=== PATIENT | female | born 1970 | race Caucasian/White ===

== ENCOUNTER 2016-10-01 22:43 | Emergency (ER) | payer OTHER ==
[~2016-10-01] VITALS: Ht 147.3 cm; Wt 96.8 kg
[~2016-10-01 22:43] MED LIST: ASPI81TA28 PO; BUPR-102 PO; GABA-1218 PO; HMLI7525 SC; PXL20 PO; TRAZ100T29 PO; [UNRECOGNIZED DRUG - CODE] PO; [UNRECOGNIZED DRUG - CODE] PO
[2016-10-01 22:49] VITALS: Ht 147.3 cm; Wt 96.8 kg
[2016-10-01] MEDS ORDERED: SODIUM CHLORIDE 0.9% 1000ML 1,000 ML IV STA (23:04)
[2016-10-01] MEDS ORDERED: FENTANYL CITRATE INJ 50 MCG/1 ML 2 ML VIAL IV STA (23:04)
[2016-10-01] MEDS ORDERED: ONDANSETRON INJ 2 MG/ML 2 ML VIAL IV STA (23:04)
[2016-10-01] MEDS ORDERED: OPTIRAY 320 IV PRN (23:15)
[2016-10-01 23:23] VITALS: O2SAT 99
[2016-10-01] MEDS ORDERED: BUPR75TA20 PO (23:27)
[2016-10-01] MEDS ORDERED: INSPMPHMLG SQ (23:29)
[2016-10-01] MEDS ORDERED: HMLI7525 SC (23:30)
[2016-10-01 23:31] LABS: BASO % 0.1 %; BASO ABS # 0.01 K/uL (0-0.2); COMPLETE YES; EOS % 0.7 %; HEMATOCRIT 29.9 % (37-47); IG% 0.3 %; LYMPH % 19.3 %; LYMPH ABS # 1.33 K/uL (1.2-3.4); MEAN CELL VOLUME 81.7 fL (80-100); MEAN CORPUSCULAR HEMOGLOBIN 28.4 pg (25-34); MEAN CORPUSCULAR HGB CONC 34.8 g/dl (32-36); MEAN PLATELET VOLUME 8.7 fL (7.4-10.4); MONO % 5.1 %; NEUT % 74.5 %; PLATELET COUNT 181 K/uL (130-400); RED BLOOD COUNT 3.66 M/uL (4.2-5.4); WHITE BLOOD COUNT 6.88 K/uL (4.8-10.8)
[2016-10-01] MEDS ORDERED: SERT50TA PO (23:31)
[2016-10-01] MEDS ORDERED: EFF/375 PO (23:32)
[2016-10-01] MEDS ORDERED: CITA40TA12 PO (23:32)
[2016-10-01] MEDS ORDERED: CHOL1000 PO (23:33)
[2016-10-01 23:38] LABS: ISTAT CREATININE 1.3 mg/dl (0.6-1.3); ISTAT HEMOGLOBIN 10.2 g/dl (12.0-16.0); ISTAT IONIZED CALCIUM 1.15 mmol/l (1.12-1.32)
[2016-10-01 23:49] LABS: ALT/SGPT 25 U/L (12-78); AST/SGOT 9 U/L (15-37); BLOOD UREA NITROGEN 18 mg/dl (7-18); BUN/CREATININE RATIO 12.3 (10-20); CALCIUM 8.8 mg/dl (8.5-10.1); CARBON DIOXIDE 33 mmol/L (21-32); CHLORIDE 105 mmol/L (98-107); GLUCOSE 244 mg/dl (70-99); SODIUM 143 mmol/L (136-145)
[2016-10-01 23:52] LABS: ALKALINE PHOSPHATASE 81 U/L (45-117)
--- NOTE | 2016-10-02 01:20 | EMERGENCY ROOM VISIT NOTE ---
History First contact with patient: 22:54 Chief Complaint: FALL Stated Complaint: FALL, R SIDE FLANK/RIB PAIN History of Present Illness The patient is a 46 year old female who presents to the Emergency Room with complaints of mechanical fall last night. Patient is visiting her sister and got in the middle night to urinate hit the wall and fell backwards. She landed on her back and right side. Patient complains of mid back pain, right lateral chest pain and right upper quadrant abdominal pain described as aching, ranging in severity 9 out of 10 worse with movement and better with rest. No prior fracture to this area. Patient denies dyspnea, headache, neck pain, low back pain, numbness, tingling, weakness, leg pain, arm pain or any other medical complaints. Review of Systems See HPI for pertinent positives & negatives. A total of 10 systems reviewed and were otherwise negative. Past Medical/Surgical History Medical Problems: (1) ABDOMINAL PAIN, EPIGASTRIC (2) ABDOMINAL PAIN, UNSPECIFIED SITE (3) Anxiety (4) ANXIETY STATE NOS (5) ATROPHIC GASTRITIS, WITHOUT MENTION OF HEMORRHAGE (6) BENIGN TUNDE PITUITARY (7) BODY MASS INDEX 40 AND OVER, ADULT (8) BODY MASS INDEX 50.0-59.9, ADULT (9) section (10) CHEST PAIN NOS (11) Cholecystectomy (12) Depression (13) Diabetes mellitus (14) DIAPHRAGMATIC HERNIA (15) ESOPHAGEAL REFLUX (16) FAM HX-CARDIOVAS DIS NEC (17) FAM HX-DIABETES MELLITUS (18) FAM HX-ISCHEM HEART DIS (19) FAMILY HISTORY OF OTHER CARDIOVASCULAR DISEASES (20) FM HX-ENDO/METAB DIS NEC (21) GASTROPARESIS (22) HX OF DISEASES NEC (23) HX OF PAST NONCOMPLIANCE (24) Hyperlipidemia (25) HYPERLIPIDEMIA NEC/NOS (26) HYPERTENSION NOS (27) MORBID OBESITY (28) MYALGIA AND MYOSITIS NOS (29) OBESITY, NOS (30) OBSTRUCTIVE SLEEP APNEA (ADULT) (PEDIATRIC) (31) PALPITATIONS (32) PANIC DISORDER WITHOUT AGORAPHOBIA (33) Pituitary tumor (34) STRESS REACT, EMOTIONAL (35) TUBAL LIGATION STATUS Surgical Problems: (1) H/O tubal ligation Family History Diabetes mellitus FH: heart disease FH: lung disease FHx: gallbladder disease Hypertension Kidney disease Kidney stones Social History Smoking Status: Never Smoker Alcohol Use: none Drug Use: none, other Marital Status: Housing Status: lives with family, other Occupation Status: disabled Current/Historical Medications Scheduled Bupropion (Wellbutrin), 75 MG PO QAM Cholecalciferol (Vitamin D3), Unknown Dose PO DAILY Citalopram Hydrobromide (Celexa), 40 MG PO DAILY Gabapentin (Neurontin), 300 MG PO TID Insulin Lispro 75/25 (Humalog Mix 75/25), 20 UNITS SC QAM Insulin Lispro 75/25 (Humalog Mix 75/25), 100 UNITS SC QPM Insulin Lispro 75/25 (Humalog Mix 75/25), 20 SC 1600 Sertraline (Zoloft), 50 MG PO DAILY Trazodone Hcl (Trazodone), 100 MG PO HS Venlafaxine Hcl (Effexor), 37.5 MG PO DAILY Allergies Coded Allergies: Hydromorphone (Unverified Allergy, Intermediate, DECREASED HEART RATE, ) Adhesives (Verified Allergy, Unknown, 10/01/16) Metoclopramide (Unverified Allergy, Unknown, ?, 10/01/16) Tramadol (Verified Allergy, Unknown, increased anxierty,panic attacks, ) Acetaminophen (Verified Adverse Reaction, Intermediate, NAUSEA, 10/01/16) Oxycodone (Verified Adverse Reaction, Unknown, nausea, 10/01/16) Physical Exam Vital Signs Date Time Temp Pulse Resp B/P Pulse Ox O2 Delivery O2 Flow Rate FiO2 10/02/16 00:26 92 18 108/55 95 Room Air 10/02/16 00:00 89 10/01/16 23:23 99 Room Air 10/01/16 23:23 99 Room Air 10/01/16 22:49 36.8 125 18 107/68 99 Room Air Physical Exam PHYSICAL EXAM: VITALS: Vitals are noted on the nurse's note and reviewed by myself. Vital signs stable. GENERAL: Pleasant female who appears in pain, in no acute distress, nondiaphoretic, well-developed well-nourished. SKIN: The skin was without obvious lacerations or abrasions. Capillary reflex less than 2 seconds. HEAD: Normocephalic atraumatic. EARS: External auditory canals clear, tympanic membranes pearly garner without erythema or effusion bilaterally. No hemotympanums. No chan sign. No mastoid tenderness. EYES: Pupils equal round and reactive to light and accommodation. Conjunctivae without injection, sclerae without icterus. Extraocular movements intact. NOSE: Patent, turbinates without inflammation or discharge. No sinus tenderness. No septal hematoma or bleeding. FACE: No facial bone tenderness. Full range of motion of the jaw without tenderness. MOUTH: Mucous membranes moist. Pharynx without erythema or exudate. Uvula midline. Airway patent. Tongue does not deviate. NECK: Supple without nuchal rigidity. Cervical spine is nontender. Full range of motion of the neck without tenderness. No JVD. HEART: Regular rate and rhythm without murmurs gallops or rubs. LUNGS: Clear to auscultation bilaterally without wheezes, rales or rhonchi. No dullness to percussion. No retractions or accessory muscle use. Right lower lateral chest wall tenderness. ABDOMEN: Positive bowel sounds x 4. Normal tympanic percussion. Soft, tender to palpation right upper quadrant, without masses or organomegaly. No guarding or rebound tenderness. No CVA tenderness MUSCULOSKELETAL: Tender to palpation mid-upper back with no step-offs or deformity, No tenderness of the lumbar spine. No tenderness with pelvic rocking. Full range of motion without tenderness to palpation in all extremities. Normal gait. Strength 5/5 throughout. Peripheral pulses 2+. NEURO: Patient was alert and oriented to person place and time. Normal Mini- Mental status exam. Normal sensation to light and sharp touch. Negative Romberg and pronator drift. Cerebellar function intact. No focal neurological deficits. Medical Decision & Procedures Laboratory Results 10/01/16 23:18 Red Blood Count 3.66, Mean Corpuscular Volume 81.7, Mean Corpuscular Hemoglobin 28.4, Mean Corpuscular Hemoglobin Concent 34.8, Mean Platelet Volume 8.7, Neutrophils (%) (Auto) 74.5, Lymphocytes (%) (Auto) 19.3, Monocytes (%) (Auto) 5.1, Eosinophils (%) (Auto) 0.7, Basophils (%) (Auto) 0.1, Neutrophils # (Auto) 5.12, Lymphocytes # (Auto) 1.33, Monocytes # (Auto) 0.35, Eosinophils # (Auto) 0.05, Basophils # (Auto) 0.01 4/14/17 23:18 Test 10/01/16 23:18 10/01/16 23:25 White Blood Count 6.88 K/uL (4.8-10.8) Red Blood Count 3.66 M/uL (4.2-5.4) Hemoglobin 10.4 g/dL (12.0-16.0) Hematocrit 29.9 % (37-47) Mean Corpuscular Volume 81.7 fL (80-100) Mean Corpuscular Hemoglobin 28.4 pg (25-34) Mean Corpuscular Hemoglobin Concent 34.8 g/dl (32-36) Platelet Count 181 K/uL (130-400) Mean Platelet Volume 8.7 fL (7.4-10.4) Neutrophils (%) (Auto) 74.5 % Lymphocytes (%) (Auto) 19.3 % Monocytes (%) (Auto) 5.1 % Eosinophils (%) (Auto) 0.7 % Basophils (%) (Auto) 0.1 % Neutrophils # (Auto) 5.12 K/uL (1.4-6.5) Lymphocytes # (Auto) 1.33 K/uL (1.2-3.4) Monocytes # (Auto) 0.35 K/uL (0.11-0.59) Eosinophils # (Auto) 0.05 K/uL (0-0.5) Basophils # (Auto) 0.01 K/uL (0-0.2) RDW Standard Deviation 41.3 fL (36.4-46.3) RDW Coefficient of Variation 13.7 % (11.5-14.5) Immature Granulocyte % (Auto) 0.3 % Immature Granulocyte # (Auto) 0.02 K/uL (0.00-0.02) Est Creatinine Clear Calc Drug Dose 45.8 ml/min Estimated GFR () 47.3 Estimated GFR (Non- 40.8 BUN/Creatinine Ratio 12.3 (10-20) Calcium Level 8.8 mg/dl (8.5-10.1) Total Bilirubin 0.3 mg/dl (0.2-1) Direct Bilirubin < 0.1 mg/dl (0-0.2) Aspartate Amino Transf (AST/SGOT) 9 U/L (15-37) Alanine Aminotransferase (ALT/SGPT) 25 U/L (12-78) Alkaline Phosphatase 81 U/L (45-117) Total Protein 7.3 gm/dl (6.4-8.2) Albumin 3.6 gm/dl (3.4-5.0) Bedside Hemoglobin 10.2 g/dl (12.0-16.0) Bedside Hematocrit 30 % (37-47) Bedside Sodium 142 mEq/L (135-144) Bedside Potassium 4.1 mEq/L (3.3-5.0) Bedside Chloride 100 mEq/L (101-112) Bedside Total CO2 26 mEq/l (24-31) Anion Gap 22.0 mmol/L (16-25) Bedside Blood Urea Nitrogen 19 mg/dl (7-18) Bedside Creatinine 1.3 mg/dl (0.6-1.3) Bedside Glucose (other) 244 mg/dl (70-99) Bedside Ionized Calcium (Andreea) 1.15 mmol/l (1.12-1.32) Medications Administered Medications (Trade) Dose Ordered Sig/Brenda Route Start Time Stop Time Status Last Admin Dose Admin Sodium Chloride (Nss 1000ml) 1,000 ml @ 125 mls/hr Q8H STAT IV 10/01/16 23:04 10/02/16 07:03 10/01/16 23:45 125 MLS/HR Fentanyl Citrate (Fentanyl Inj) 100 mcg NOW STAT IV 10/01/16 23:04 10/01/16 23:08 DC 10/01/16 23:45 100 MCG Ondansetron HCl (Zofran Inj) 4 mg NOW STAT IV 10/01/16 23:04 10/01/16 23:08 DC 10/01/16 23:46 4 MG ED Course Prior records/ancillary studies reviewed. Triage Nursing notes reviewed. Additional history obtained from family The patient's history was concerning for traumatic injury Differential diagnosis: Etiologies such as fracture, dislocation, intra-abdominal, pneumothorax, intrathoracic , intracranial, neurologic, as well as other traumatic pathologies were entertained. Physical examination findings: As above. The patients vitals were stable. ER treatment provided: IV Normal Saline hydration, 500 mL. Fentanyl, Zofran Incentive spirometry On reassessment the patient felt better. Vital signs were stable. Diagnostic interpretation by me: The labs revealed stable H&H. No worrisome electrolyte abnormality Imaging studies: CT CHEST With Contrast: No pneumothorax. Lungs are clear. No pleural effusions. CV structures are unremarkable. Osseous structures are intact. CT ABDOMEN & PELVIS: No free air. No free fluid. No evidence of solid organ injury. No evidence of spinal, pelvic or femoral neck fractures. CT T SPINE: No evidence of fracture or malalignment. Radiologist: Tee Adrian MD This appears to be consistent with fall with muscle skeletal injuries. Patient had no fracture or intra-abdominal or intrathoracic injuries noted on CT imaging. She was well-appearing. She is advised to do incentive spirometry and to take pain meds as directed. She did not have acute abdomen on exam. Patient was neurovascularly and neurologically intact. No deficits on exam. She is well-appearing. She is advised to follow-up family care in a few days or here in the ER sooner for chest pain, difficulty breathing, abdominal pain, worsening signs or symptoms or as needed. By the evaluation outlined above emergent etiologies such as fracture, dislocation, intra-abdominal, pneumothorax , pulmonary contusion, hemothorax, intracranial, neurologic,as well as others were deemed relatively unlikely. The pt informed about the findings as listed above. All questions were answered and pleased with the treatment. Return instructions were outlined and the patient was discharged in stable condition. Referral: The patient was referred to family medicine for follow-up in 2 to 3 days for a recheck of the current condition. Case reviewed with my attending. Medical Decision As above Impression Primary Impression: Fall Additional Impressions: Strain of thoracic spine Chest wall pain Abdominal wall pain in right upper quadrant Departure Information Dispostion Home / Self-Care Condition GOOD Referrals No Doctor, Assigned (PCP) Patient Instructions My [facility] Additional Instructions Incentive spirometry 10 times an hour while you are awake for the next 2 weeks. Ibuprofen(Motrin, Advil) may be used for fever or pain. Use 600mg every six hours as needed. Take with food. Avoid using more than 2400mg in a 24 hour period. Do not use 2400mg per day for more than three consecutive days without physician direction. Prolonged inappropriate use can lead to stomach upset or ulcers. Rest and drink plenty of fluids as tolerated. Continue current medications. Avoid strenuous activities and anything that worsens your pain. Resume normal activities once your symptoms resolve. Return to the ER immediately for worsening or persistent chest pain, abdominal pain, vomiting, fevers, chest pains, difficulty breathing, worsening of your condition, or as needed. Follow up with your primary physician in 2-3 days for a recheck of your current condition. Problem Qualifiers
[2016-10-02 01:24] VITALS: BP 108/55; PULSE 92; TEMP 36.8; O2SAT 95
[2016-10-02] MEDS ORDERED: FENTANYL CITRATE INJ 50 MCG/1 ML 2 ML VIAL IV STA (01:27)
[2016-10-02] MEDS ORDERED: FENTANYL CITRATE INJ 50 MCG/1 ML 2 ML VIAL ONE (01:33)
--- NOTE | 2016-10-02 07:39 | DIAGNOSTIC IMAGING REPORT ---
THORACIC SPINE CT CT DOSE: HISTORY: fall, severe back right lateral chest/rughtupper abd pain TECHNIQUE: Multiaxial CT images of the thoracic spine were performed and reformatted in the sagittal and coronal plane without the use of contrast. COMPARISON: None. FINDINGS: No fractures. No subluxation. Paraspinal soft tissues are unremarkable. Moderate degenerative changes within the mid to lower thoracic spine. There are few small Schmorl's nodes within the mid thoracic spine. IMPRESSION: No fractures within the thoracic spine. Electronically signed by: Arnulfo Weems M.D. 10/02/2016 7:37 AM Dictated Date/Time: 10/02/2016 7:33 AM
--- NOTE | 2016-10-02 07:42 | DIAGNOSTIC IMAGING REPORT ---
CHEST CT WITH CONTRAST CT DOSE: HISTORY: fall, severe back right lateral chest/rughtupper abd pain TECHNIQUE: Multiaxial CT images of the chest were performed following the intravenous administration of contrast. COMPARISON: None. FINDINGS: Mild bibasilar subsegmental atelectasis. The heart is mildly enlarged. Trace pericardial fluid. The mediastinal vascular structures are within normal limits. No mediastinal or hilar lymphadenopathy. No pleural effusion or pneumothorax. Limited views of the upper abdomen demonstrate a normal liver and spleen. IMPRESSION: Trace pericardial fluid and mild bibasilar subsegmental atelectasis. Otherwise, no acute process within the chest. The heart is mildly enlarged. Electronically signed by: Arnulfo Weems M.D. 10/02/2016 7:40 AM Dictated Date/Time: 10/02/2016 7:37 AM
--- NOTE | 2016-10-02 07:45 | DIAGNOSTIC IMAGING REPORT ---
ABDOMEN AND PELVIS CT WITH IV CONTRAST CT DOSE: 2906.36 mGy.cm HISTORY: fall, severe back right lateral chest/rughtupper abd pain TECHNIQUE: Multiaxial CT images of the abdomen and pelvis were performed following the use of intravenous contrast. COMPARISON STUDY: Abdomen and pelvis CT 01/02/2014. FINDINGS: Mild dependent changes at the lung bases. Trace pericardial fluid, unchanged. No fractures within the visualized osseous structures. Cholecystectomy. The liver, spleen, adrenal glands, pancreas, and kidneys are unremarkable. No retroperitoneal lymphadenopathy. The uterus, ovaries, and bladder are unremarkable. No pelvic free fluid. No bowel wall thickening or obstruction. Normal appendix. IMPRESSION: No significant abnormality identified within the abdomen or pelvis. Electronically signed by: Arnulfo Weems M.D. 10/02/2016 7:43 AM Dictated Date/Time: 10/02/2016 7:40 AM
--- NOTE | 2016-10-02 07:53 | DIAGNOSTIC IMAGING REPORT ---
CHEST ONE VIEW PORTABLE HISTORY: Right-sided CHEST PAIN COMPARISON: Chest 05/29/2015. FINDINGS: The heart is mildly enlarged. Mild central pulmonary vascular congestion without overt edema. No pleural effusions. No pneumothorax. No focal lung consolidations to suggest pneumonia. IMPRESSION: Cardiomegaly with mild central pulmonary vascular congestion. Electronically signed by: Arnulfo Weems M.D. 10/02/2016 7:50 AM Dictated Date/Time: 10/02/2016 7:50 AM
== END 2016-10-02 01:25 | disposition home or self-care (01) ==
LOC: C.EDB 22:47 → C.EDA 10-02 01:25
DX: S39.012A Strain of muscle, fascia and tendon of lower back, initial encounter (principal); R07.89 Other chest pain; R10.11 Right upper quadrant pain; W18.00XA Striking against unspecified object with subsequent fall, initial encounter; Z68.41 Body mass index [BMI] 40.0-44.9, adult; Z90.49 Acquired absence of other specified parts of digestive tract; F32.9 Major depressive disorder, single episode, unspecified; K21.9 Gastro-esophageal reflux disease without esophagitis; E11.43 Type 2 diabetes mellitus with diabetic autonomic (poly)neuropathy; E78.5 Hyperlipidemia, unspecified; I10 Essential (primary) hypertension; G47.33 Obstructive sleep apnea (adult) (pediatric); E66.01 Morbid (severe) obesity due to excess calories; F41.0 Panic disorder [episodic paroxysmal anxiety]; Z98.51 Tubal ligation status; Z79.4 Long term (current) use of insulin; Z79.899 Other long term (current) drug therapy

== ENCOUNTER 2017-06-09 09:43 | Emergency (ER) | payer OTHER ==
[~2017-06-09 09:43] MED LIST changes: -ASPI81TA28 PO; -BUPR-102 PO; +BUPR75TA20 PO; +CHOL1000 PO; +CITA40TA12 PO; +EFF/375 PO; -PXL20 PO; +SERT50TA PO; -[UNRECOGNIZED DRUG - CODE] PO; -[UNRECOGNIZED DRUG - CODE] PO
[2017-06-09 09:53] VITALS: TEMP 36.5
[2017-06-09 10:33] LABS: BASO % 0.2 %; BASO ABS # 0.01 K/uL (0-0.2); COMPLETE YES; EOS % 2.2 %; HEMATOCRIT 29.2 % (37-47); IG% 0.2 %; LYMPH % 18.4 %; LYMPH ABS # 1.18 K/uL (1.2-3.4); MEAN CELL VOLUME 85.1 fL (80-100); MEAN CORPUSCULAR HEMOGLOBIN 28.6 pg (25-34); MEAN CORPUSCULAR HGB CONC 33.6 g/dl (32-36); MEAN PLATELET VOLUME 8.5 fL (7.4-10.4); MONO % 7.2 %; NEUT % 71.8 %; PLATELET COUNT 181 K/uL (130-400); RED BLOOD COUNT 3.43 M/uL (4.2-5.4); WHITE BLOOD COUNT 6.41 K/uL (4.8-10.8)
[2017-06-09] MEDS ORDERED: ZNTT/150 PO (10:42)
[2017-06-09] MEDS ORDERED: FENO48TA9 PO (10:42)
[2017-06-09] MEDS ORDERED: RAMI2.5C PO (10:42)
[2017-06-09] MEDS ORDERED: LVMI SQ (10:42)
[2017-06-09] MEDS ORDERED: [UNRECOGNIZED DRUG - CODE] PO (10:42)
[2017-06-09] MEDS ORDERED: PARO1TAB27 PO (10:42)
[2017-06-09] MEDS ORDERED: ASPCH81X PO (10:42)
[2017-06-09] MEDS ORDERED: ROSU20TA22 PO (10:43)
--- NOTE | 2017-06-09 10:45 | DIAGNOSTIC IMAGING REPORT ---
CHEST ONE VIEW PORTABLE CLINICAL HISTORY: Atypical chest pain COMPARISON STUDY: 10/01/2016 FINDINGS: The cardiac and mediastinal contours remain stable. There is no failure. There is no focal pulmonary consolidation. There are no pleural effusions. Postsurgical changes involve the right humerus.[ IMPRESSION: No active disease in the chest. Electronically signed by: Kosta Quinn M.D. 06/09/2017 10:44 AM Dictated Date/Time: 06/09/2017 10:43 AM
[2017-06-09 10:50] LABS: ALT/SGPT 22 U/L (12-78); BLOOD UREA NITROGEN 25 mg/dl (7-18); BUN/CREATININE RATIO 16.4 (10-20); CALCIUM 8.9 mg/dl (8.5-10.1); CARBON DIOXIDE 27 mmol/L (21-32); CHLORIDE 106 mmol/L (98-107); CREATININE 1.53 mg/dl (0.60-1.20); GLUCOSE 105 mg/dl (70-99); POTASSIUM 4.2 mmol/L (3.5-5.1); SODIUM 138 mmol/L (136-145)
[2017-06-09 10:55] LABS: ALKALINE PHOSPHATASE 66 U/L (45-117); AST/SGOT 17 U/L (15-37)
[2017-06-09] MEDS ORDERED: OXYCODONE HCL IR 5 MG TAB (IMMEDIATE RELEASE) PO STA (11:28)
[2017-06-09] MEDS ORDERED: ONDANSETRON 4MG OD TAB PO STA (14:11)
[2017-06-09 15:00] VITALS: BP 124/72; PULSE 62; O2SAT 97
--- NOTE | 2017-06-09 15:37 | EMERGENCY ROOM VISIT NOTE ---
ED Visit Note First contact with patient: 09:46 Chief Complaint: Hypoglycemia. History of Present Illness: Ms. Watts is a 46-year-old white female who is brought into the ED via ambulance for hypoglycemia. Patient reports she is an insulin-dependent diabetic. She reports she took her insulin at 7 AM this morning; approximately 2.5 hours before she arrived in the emergency department but then forgot to eat. She reports these then started feeling shaky, having chest pain and felt like she was going to pass out. She checked her blood sugar and it was 47. She reports she ate a couple cookies. She rechecked her blood sugar and it was not elevated she activated EMS system and was transported to the hospital the ambulance. EMS reports when they arrived on scene patient's blood sugar was 87 and she was not experiencing any symptoms. On my initial evaluation of the patient she reports all her symptoms resolved and her blood sugar was 105. I did express concerns for her associated symptoms of chest pain during her hypoglycemic episode and a cardiac workup was performed. She reports she was slightly confused when her blood sugar was low and doesn't remember the timing of her chest pain. She does report it was midsternal but was not able to describe it or rate it since and said he. She does not remember that it was radiating. She did have symptoms of feeling like she needed to pass out and diaphoretic but did not know if they related to her hypoglycemia or her chest pain. Historically she does have hypertension and diabetes personally. She denies any history of heart disease. She does report both parents had coronary artery disease and had CABG procedures. Additionally she does report on April 20 she had right shoulder surgery for fracture from a fall. Currently she denies fevers, chills, chest pain, shortness of breath, palpitations, previous clots, claudication, cramping, recent extended travel, abdominal pain, nausea, vomiting, extremity weakness/numbness/tingling. Lastly patient reports she has a rash on the back of her neck and she expresses concerns for scabies. She reports this itching started approximately one week ago and has gradually increased in intensity. She has not treated this rash prior to arrival at the hospital. Review of Systems: As noted above in history of present illness. All body systems were reviewed and found to be negative as noted above. Past Medical History: As previously noted, pneumonia, status post brain tumor resection, cholecystectomy, hysterectomy and carpal tunnel release. Current Medications: Medications Dose Route/Sig Max Daily Dose Days Date Category Rosuvastatin Calcium 20 Mg Tab 20 Mg PO QAM 06/09/17 Reported Aspirin Chewable (Aspirin) 81 Mg Chew 81 Mg PO QAM 06/09/17 Reported Tricor (Fenofibrate) 48 Mg Tab 48 Mg PO QAM 06/09/17 Reported Ramipril 2.5 Mg Cap 1.25 Cap PO QAM 06/09/17 Reported Paxil (Paroxetine HCl) 20 Mg Tab 30 Mg PO QAM 06/09/17 Reported Zantac (Ranitidine HCl) 150 Mg Tab 150 Mg PO QAM 06/09/17 Reported Chlorpromazine HCl 100 Mg Tab 100 Mg PO QAM 06/09/17 Reported Levemir (Insulin Detemir) 100 Units/Ml Inj 100 SQ 1900 06/09/17 Reported Wellbutrin (Bupropion HCl) 75 Mg Tab 75 Mg PO QAM 10/01/16 Reported Neurontin (Gabapentin) 300 Mg Cap 300 Mg PO TID 01/27/15 Reported Humalog Mix 75/25 (Insulin Human Lispro) 100 Units/ Inj 20 Units SC QAM 01/06/15 Reported Allergies to Medications: Hydrin mode full, tramadol, Dilantin, metoclopramide. Social History: Patient is not employed; she feels safe in her home environment ; she denies tobacco and alcohol use. Physical Examination: Vital Signs: Date Time Temp Pulse Resp B/P (MAP) Pulse Ox O2 Delivery O2 Flow Rate FiO2 06/09/17 13:00 68 18 134/76 97 Room Air 06/09/17 11:00 72 18 125/72 97 Room Air 06/09/17 09:53 36.5 89 18 131/64 97 Room Air 06/09/17 09:53 87 GENERAL: 46-year-old female in no acute distress, nontoxic-appearing, afebrile and hemodynamically stable. NEUROLOGICAL: Awake, alert and oriented to person, place and time. Answering questions appropriately and following commands. SKIN: Warm, dry and pink. Posterior Neck: At the base of patient's hairline there is a mildly erythematous scaly rash; I do not feel this is consistent with scabies. The rash is not warm or appear its cellulitis. Right Shoulder: Surgical scar is clean dry and intact without signs of infection. HEENT: Atraumatic and normocephalic. PERRLA. Sclera white and conjunctiva pink. No drainage from naris. Oral cavity moist and pink. Pharynx is nonerythematous or edematous. Speech normal. No lymphadenopathy. Trachea midline. No jugular venous distention. No carotid bruits. BACK: No tenderness over the bony spine. No CVA tenderness. THORAX: Lungs sounds are clear to auscultation and equal bilaterally with symmetrical chest wall. No wheezing, rales or rhonchi. No crepitus, tenderness , subcutaneous air or deformities noted. HEART: Regular rate and rhythm. No gallops, rubs or murmurs are appreciated. PMI is not displaced. No lifts, heaves or thrills. ABDOMEN: Obese, soft and nontender. Positive bowel sounds in all quadrants. No guarding, rigidity or organomegaly. UPPER EXTREMITIES: Restricted movement to the right shoulder due to recent surgery. Full range of motion of the left upper extremity shoulder. All distal neurovascular statuses are intact and equal bilaterally. LOWER EXTREMITY: No gross bony deformity. Normal gait. No bony tenderness in the hip, knee, ankle or foot. Mild bilateral dependent edema. All distal neurovascular statuses are intact and equal bilaterally. No calf tenderness or cords. ED Course: Patient is assessed as noted above. Patient's medication list was reviewed. Laboratory Testing: Test 06/09/17 09:50 06/09/17 10:20 06/09/17 13:40 Range/Units Bedside Glucose 87 70-90 mg/dl White Blood Count 6.41 4.8-10.8 K/uL Red Blood Count 3.43 4.2-5.4 M/uL Hemoglobin 9.8 12.0-16.0 g/dL Hematocrit 29.2 37-47 % Mean Corpuscular Volume 85.1 80-100 fL Mean Corpuscular Hemoglobin 28.6 25-34 pg Mean Corpuscular Hemoglobin Concent 33.6 32-36 g/dl Platelet Count 181 130-400 K/uL Mean Platelet Volume 8.5 7.4-10.4 fL Neutrophils (%) (Auto) 71.8 % Lymphocytes (%) (Auto) 18.4 % Monocytes (%) (Auto) 7.2 % Eosinophils (%) (Auto) 2.2 % Basophils (%) (Auto) 0.2 % Neutrophils # (Auto) 4.61 1.4-6.5 K/uL Lymphocytes # (Auto) 1.18 1.2-3.4 K/uL Monocytes # (Auto) 0.46 0.11-0.59 K/uL Eosinophils # (Auto) 0.14 0-0.5 K/uL Basophils # (Auto) 0.01 0-0.2 K/uL RDW Standard Deviation 43.4 36.4-46.3 fL RDW Coefficient of Variation 14.0 11.5-14.5 % Immature Granulocyte % (Auto) 0.2 % Immature Granulocyte # (Auto) 0.01 0.00-0.02 K/uL Sodium Level 138 136-145 mmol/L Potassium Level 4.2 3.5-5.1 mmol/L Chloride Level 106 98-107 mmol/L Carbon Dioxide Level 27 21-32 mmol/L Anion Gap 5.0 3-11 mmol/L Blood Urea Nitrogen 25 7-18 mg/dl Creatinine 1.53 0.60-1.20 mg/dl Estimated GFR () 46.1 Estimated GFR (Non- 39.8 BUN/Creatinine Ratio 16.4 10-20 Random Glucose 105 70-99 mg/dl Calcium Level 8.9 8.5-10.1 mg/dl Total Bilirubin 0.2 0.2-1 mg/dl Direct Bilirubin < 0.1 0-0.2 mg/dl Aspartate Amino Transf (AST/SGOT) 17 15-37 U/L Alanine Aminotransferase (ALT/SGPT) 22 12-78 U/L Alkaline Phosphatase 66 45-117 U/L Troponin I < 0.015 < 0.015 0-0.045 ng/ml Total Protein 7.3 6.4-8.2 gm/dl Albumin 3.6 3.4-5.0 gm/dl Lipase 112 73-393 U/L EKG #1: 1015 Was read by myself and reviewed with Dr. Moralez shows sinus rhythm with first-degree AV block and left axial deviation. Diffuse nonspecific EKG changes. This was compared to an EKG performed on May 2015 in no acute changes were noted except for the first-degree AV block. EKG #2:1303 was read by myself and reviewed with Dr. Moralez; shows sinus rhythm with a ventricular rate of 89 bpm with first-degree AV block, left axial deviation and ST changes noted above. Chest X-Rays: Was read by myself and the radiologist showing no acute infiltrates, effusions or pneumothorax. Normal heart silhouette and bony anatomy. Postsurgical changes of the right humerus. Patient was given aren't juice and sugar for her hypoglycemia. During her stay in the emergency department she does report that her right shoulder was hurting and requested a Percocet tablet; I did comply with her request and she received 1 Percocet tablet by mouth. Additionally later during her stay in the emergency department she reports she was nauseated and she was given 4 mg of Zofran ODT. Patient was reassessed multiple times during her stay in the emergency department. Patient's case was reviewed with Dr. Moralez; we agreed on diagnostic approach, treatment, disposition and plan. Patient's case was consulted with Dr. Watkins, [facility] cardiology; he recommended outpatient follow-up and recommended that we recheck her troponin and EKG. Both her troponin or EKG was rechecked and showed no significant changes. Patient was educated about today's findings and instructed on her treatment plan ; she verbalized understanding and agreement with this plan. Clinical Impression: Hypoglycemia. Chest pain. Decision-Making: Initially my differential diagnosis for her chest pain I considered pulmonary embolism, pneumothorax, pneumonia, acute coronary syndrome. Disposition: Patient discharged home in stable condition; prior to departure she was reassessed and subjectively reported that she was pain and symptom-free. Plan: Patient was encouraged to continue her current prescribed medications. Patient was encouraged to me immediately after taking her insulin. Patient is encouraged to call her family physician for follow-up care and possible referral to cardiology. Patient was encouraged return ED for hypoglycemia, referral chest pain, shortness of breath or any new/concerning symptoms.
== END 2017-06-09 15:16 | disposition home or self-care (01) ==
LOC: EDBD 09:43 → C.EDB 09:44
DX: E16.2 Hypoglycemia, unspecified (principal); R07.9 Chest pain, unspecified

== ENCOUNTER 2023-09-27 03:17 | Inpatient (IN) ==
[2023-09-27 03:49] LABS: Basophils % (auto) 0.3 %; Eosinophils % (auto) 2.3 %; Hematocrit (blood only) 33.4 % (37.0-47.0); Hemoglobin 9.9 g/dl (12.0-16.0); Lymphocytes % (auto) 12.3 %; Mean Corpuscular Hemoglobin 25.5 pg (25.0-34.0); Mean Corpuscular Hgb Conc 29.6 g/dL (32.0-36.0); Mean Corpuscular Volume 86.1 fL (80.0-100.0); Monocytes % (auto) 5.1 %; Neutrophils % (auto) 79.5 %; Platelet Count 204 K/uL (130-400); RDW Coefficient of Variation 17.1 % (11.5-14.5); RDW Standard Deviation 54.1 fL (36.4-46.3); Red Blood Count 3.88 M/uL (4.20-5.40); White Blood Count 9.91 K/ul (4.8-10.8)
[2023-09-27 03:50] LABS: Basophils # (auto) 0.03 K/uL (0.00-0.20); Eosinophils # (auto) 0.23 K/uL (0.00-0.50); Immature Granulocytes # (auto) 0.05 K/uL (0.01-0.20); Immature Granulocytes % (auto) 0.5 %; Lymphocytes # (auto) 1.22 K/uL (1.20-3.40); Monocytes # (auto) 0.51 K/uL (0.11-0.59); Neutrophils # (auto) 7.87 K/uL (1.40-6.50)
[2023-09-27 04:09] LABS: Alanine Aminotransferase 10 U/L (7-52); Albumin Globulin Ratio 1.2 (0.9-2); Alkaline Phosphatase 56 U/L (34-104); Anion Gap 6 (3-11); Aspartate Aminotransferase 10 U/L (13-39); BUN Creatinine Ratio 17.2 (10-20); Bilirubin,Total 0.3 mg/dl (0.2-1.0); Blood Urea Nitrogen 28 mg/dl (6-23); Calcium 8.9 mg/dl (8.6-10.3); Carbon Dioxide 28 mmol/L (21-32); Chloride 108 mmol/L (98-107); Est GFR (African American) 40.7 ml/min; Est GFR (Non-African American) 35.1 ml/min; Globulin 3.3 gm/dl (2.5-4.0); Glucose 163 mg/dl (70-99(Fasting)); Potassium 4.6 mmol/L (3.5-5.1); Sodium 142 mmol/L (136-145); Total Protein 7.3 gm/dl (6.0-8.3)
[2023-09-27 04:14] LABS: Troponin I High Sensitivity 8.5 pg/ml (0-14)
[2023-09-27 04:24] LABS: Partial Thromboplastin Ratio 1.4; Partial Thromboplastin Time 40 Seconds (21-31); Prothrombin Time 11.2 Seconds (9.0-12.0)
[2023-09-27 04:34] LABS: Adenovirus PCR Not Detected (NotDetected); Bordetella parapertussis PCR Not Detected (NotDetected); Bordetella pertussis PCR Not Detected (NotDetected); Chlamydia pneumoniae PCR Not Detected (NotDetected); Coronavirus 229E PCR Not Detected (NotDetected); Coronavirus CoV-2 (COVID19)PCR Not Detected (NotDetected); Coronavirus HKU1 PCR Not Detected (NotDetected); Coronavirus NL63 PCR Not Detected (NotDetected); Coronavirus OC43PCR Not Detected (NotDetected); Human Metapneumovirus PCR DETECTED (NotDetected); Influenza A PCR Not Detected (NotDetected); Influenza B PCR Not Detected (NotDetected); Mycoplasma pneumoniae PCR Not Detected (NotDetected); Parainfluenza Virus 1 PCR Not Detected (NotDetected); Parainfluenza Virus 2 PCR Not Detected (NotDetected); Parainfluenza Virus 3 PCR Not Detected (NotDetected); Parainfluenza Virus 4 PCR Not Detected (NotDetected); Respiratory Syncytial VirusPCR Not Detected (NotDetected); Rhinovirus/Enterovirus PCR Not Detected (NotDetected)
[2023-09-27] MEDS: ALBUT/IPRATROP 3MG/0.5MG NEB 3 ML VIAL NEB STA (06:43)
--- NOTE | 2023-09-27 07:13 | Emergency Department Note ---
Impression & Plan Pneumonia involving left lung, Anemia, Infection due to human metapneumovirus (hMPV), Shortness of breath, Elevated brain natriuretic peptide (BNP) level ED Provider Note NAME: ABRAHAM MERRILL AGE: 53 SEX: Female INFORMANT: Patient ED PROVIDER(S): Stevan Richmond MD CHIEF COMPLAINT: Shortness of breath and cough PLAN: Disposition: Admitted Outpatient prescription management: none Referral: None MEDICAL DECISION MAKING: Patient presented because of shortness of breath and a cough. [facility] Patient had increased her oxygen use at the nursing facility. Patient did have wheezing noted. She was ordered a nebulizer treatment. X-ray was concerning for left-sided pneumonia. Blood cultures and antibiotics with cefepime and doxycycline ordered. She had a negative COVID and flu test. Biofire test did reveal the presence of metapneumovirus. On reassessment the patient was feeling somewhat better. Discussed further management in the hospital given the findings on chest x-ray and her symptomatology. Patient in agreement. [facility] Case was discussed. Patient will be admitted for further management. Care/management discussed with: [employer] project manager Level of care consideration(s): After review of the information above and other included data, I feel the patient requires escalation of care to admission Triage Nursing notes: reviewed and agree them. Vital Signs: reviewed and remarkable for hypertension Additional History obtained from: none Chronic Medical/Social Conditions affecting care: CVA Prior/ Outside/ External records reviewed: none Differential Diagnosis: Reactive airway disease, pneumonia, pneumothorax, COPD, CHF, infections, cardiac ischemia, pulmonary embolism, musculoskeletal, gastrointestinal, as well as other pathologies. Diagnostics, independently interpreted by me: ECG: Twelve-lead ECG reveals sinus tachycardia 112 bpm. Left axis deviation. Low voltage QRS. Anteroseptal Q waves. Cardiac Monitoring: Cardiac monitoring ordered by me: The patient was placed on continuous cardiac monitoring and observed. It revealed a sinus tachycardic rhythm at 104 beats per minute without ectopy or evidence of dysrhythmia. Medical decision rules: none Imaging studies: Chest x-ray reveals a large left-sided infiltrate and effusion. HPI: 53 year old Female arrives for evaluation of shortness of breath. This started several days ago and is persisting. The patient also notes the following associated symptoms, cough and congestion. The patient has been given a DuoNeb prehospital for relieving factors. Current pain is rated as 0/10. Patient does reside at a nursing facility. She notes she has had contact with patient's exhibiting respiratory symptoms. Pt denies LOC, headache, fevers, chills, diaphoresis, visual changes, neck pain, chest pain, nausea, vomiting, abdominal pain, back pain, melena, hematochezia, urinary symptoms, numbness, new weakness, lymphadenopathy, rash, or other complaints. PAST MEDICAL HISTORY: See Below, CVA, diabetes PAST SURGICAL HISTORY: See Below, SOCIAL HISTORY: See Below, non-smoker HOME MEDICATIONS: See Below ALLERGIES: See Below VITALS: See Below PHYSICAL EXAMINATION: GENERAL: Awake, alert, mildly dyspneic-appearing, in no distress HENT: Normocephalic, atraumatic. Oropharynx unremarkable. EYES: Normal conjunctiva. Sclera non-icteric. NECK: Inspection normal. Non-tender. Supple. No nuchal rigidity. FROM. No masses. RESPIRATORY: Few scattered wheezes. There is diminished breath sounds in the left base. Minimally increased respiratory effort. CARDIAC: Normal rate. Normal rhythm. No murmurs. No rubs. Extremities warm and well perfused. Pulses equal. No JVD. GI: Soft, non-distended. No tenderness to palpation. No rebound or guarding. No masses. RECTAL: Deferred. MUSCULOSKELETAL: Atraumatic. Chest examination reveals no tenderness. The back is symmetrical on inspection without obvious abnormality. There is no CVA tenderness to palpation. No joint edema. LOWER EXTREMITIES: Calves are equal size bilaterally and non-tender. 1+ edema. No discoloration. NEURO: Normal sensorium. No sensory or motor deficits noted. SKIN: No rash or jaundice noted. PROCEDURES: none CRITICAL CARE: none OBSERVATION NOTE: none Past Med/Surg History Medical History (Updated 09/27/23 @ 07:42 by Tahmina Gates DO) Diabetic retinopathy of both eyes without macular edema associated with diabetes mellitus due to underlying condition Vitamin B deficiency Hemoperitoneum CKD (chronic kidney disease) stage 4, GFR 15-29 ml/min follows with [facility] nephrology, Cr range 1.7-2.0 over past 1+ yr Bipolar disorder stable per pt, established with psychiatry Resides in half-way facility [facility] Anemia Hgb range 9-10 over past several yrs History of subarachnoid hemorrhage After fall (2019) History of subdural hematoma After fall (2019) Nocturnal hypoxia Mild intellectual disabilities Muscle weakness (generalized) Diabetic nephropathy associated with type 2 diabetes mellitus Restless leg syndrome Obstructive sleep apnea non-compliant Morbid obesity Nemo's syndrome, unspecified Gastroparesis Hyperlipidemia Panic disorder Major depressive disorder, recurrent Pericardial effusion Pt and staff unsure, not noted in facility records GERD (gastroesophageal reflux disease) Hypothyroidism Diabetes mellitus, type 2 IDDM, Pt reports intermittent episodes of hypoglycemia in setting of fasting and requests early surgery time CVA (cerebral infarction) 07/2013 Pituitary tumor s/p resection (1995) Surgical History History of cataract surgery Left History of open reduction and internal fixation (ORIF) procedure Right humerus History of shoulder replacement Right History of surgery Pituitary tumor excision (1995) History of section History of laparoscopic cholecystectomy History of esophagogastroduodenoscopy (EGD) History of colonoscopy History of revision of total replacement of right shoulder joint H/O tubal ligation Family History Father Family history of diabetes mellitus Mother Family history of diabetes mellitus Grandfather Family hx of colon cancer Social History Smoking Status: Never smoker Do You Dip or Chew Tobacco: No; Preferred Language: Macedonian Communication Ability: Effective Communication Ability Comment: per [facility] pt is of sound mind to sign own consent Marketing Outreach Coordinator Required: No Beliefs That Will Affect Care: None marital status: Single Current Living Situation: Halfway Current Living Situation Comment: [facility] current occupational status: unemployed Feels Safe at Home: Yes Assistive Devices: Wheelchair Allergies Allergies Allergy/AdvReac Type Severity Reaction Status Date / Time metformin Allergy Unknown Unknown Verified 08/19/21 10:39 reaction (per [facility] records) phenytoin [From Dilantin] Allergy Unknown Unknown Verified 08/19/21 10:39 reaction (per [facility] records) acetaminophen AdvReac Intermediate Nausea Verified 08/19/21 10:39 hydromorphone AdvReac Intermediate Bradycardia Verified 08/19/21 10:39 tramadol AdvReac Unknown N/V Verified 08/19/21 10:39 Home Meds Home Medications Medication Instructions Recorded Confirmed bupropion HCl 300 mg 24 hr tablet, 300 mg PO QAM 09/07/18 08/19/21 extended release (Wellbutrin XL) gabapentin 300 mg capsule 300 mg PO TID 09/07/18 08/19/21 insulin aspart U-100 100 unit/mL 1 sliding scale dose subcut 09/07/18 08/19/21 subcutaneous solution (Novolog USEASDIRECTD U-100 Insulin aspart) insulin aspart U-100 100 unit/mL 15 - 30 unit subcut TIDM 09/07/18 08/19/21 subcutaneous solution (Novolog U-100 Insulin aspart) insulin detemir U-100 100 unit/mL 60 unit subcut HS 09/07/18 08/19/21 subcutaneous solution paroxetine HCl 30 mg tablet (Paxil) 30 mg PO QAM 09/07/18 08/19/21 rosuvastatin 20 mg tablet (Crestor) 20 mg PO HS 09/07/18 08/19/21 bisacodyl 10 mg rectal suppository 10 mg WY DAILY PRN Constipation 01/12/19 08/19/21 (Dulcolax (bisacodyl)) cholecalciferol (vitamin D3) 50 2,000 unit PO DAILY 01/12/19 08/19/21 mcg (2,000 unit) tablet (Vitamin D3) levothyroxine 50 mcg tablet 50 mcg PO DAILY 01/12/19 08/19/21 magnesium hydroxide 400 mg/5 mL 30 ml PO DAILY PRN Constipation 01/12/19 08/19/21 oral suspension (Milk of Magnesia) nystatin 100,000 unit/gram topical 1 applic topical TID 01/12/19 08/19/21 powder oxycodone 5 mg tablet 5 mg PO Q4 PRN Pain 01/12/19 08/19/21 sodium phosphates 19 gram-7 118 ml WY DAILY PRN Constipation 01/12/19 08/19/21 gram/118 mL enema (Fleet Enema) dulaglutide 0.75 mg/0.5 mL 0.75 mg subcut WK 02/24/21 08/19/21 subcutaneous pen injector (Trulicity) famotidine 20 mg tablet 20 mg PO BID 02/24/21 08/19/21 ferrous sulfate 325 mg (65 mg 325 mg PO DAILY 02/24/21 08/19/21 iron) tablet melatonin 3 mg capsule 3 mg PO HS PRN Sleep 02/24/21 08/19/21 pantoprazole 20 mg tablet,delayed 20 mg PO DAILY 02/24/21 08/19/21 release chlorpromazine 25 mg tablet 25 mg PO QAM 06/03/21 08/19/21 fenofibrate nanocrystallized 48 mg 48 mg PO QAM 06/03/21 08/19/21 tablet carboxymethylcellulose sodium 0.5 2 drp ophthalmic (eye) Q8 PRN Dry 08/06/21 08/19/21 % eye drops in a dropperette Eye(S) (Refresh Plus) chlorpromazine 25 mg tablet 125 mg PO HS 08/06/21 08/19/21 Results & Data (ED) Vital Signs Vital Signs - 24 hr 09/27/23 03:24 09/27/23 03:28 09/27/23 03:28 Temperature 37.3 C Temperature Source Oral Pulse Rate 112 H 108 H Pulse Rate [Apical] Pulse Rhythm Regular Pulse Rhythm [Apical] Pulse Strength Normal Pulse Strength [Apical] Respiratory Rate 18 Respiratory Effort / Characteristics Non-Labored Spontaneous Non-Labored Spontaneous Respiratory Depth Normal Normal Respiratory Pattern Regular Regular Blood Pressure 145/78 H Blood Pressure [Right Arm] Blood Pressure Mean 100 Blood Pressure Mean [Right Arm] Blood Pressure Position Lying Blood Pressure Position [Right Arm] Pulse Oximetry 96 Oxygen Delivery Method Nasal Cannula Nasal Cannula Oxygen Flow Rate 4 4 Sepsis Recent Fever Within 48 Hours No Sepsis New/Unexplained Change in Mental Status No Sepsis Action Taken by Nursing No Action Required 09/27/23 03:28 09/27/23 03:28 09/27/23 03:28 Temperature 37.3 C Temperature Source Oral Pulse Rate 108 H Pulse Rate [Apical] 108 H Pulse Rhythm Regular Pulse Rhythm [Apical] Regular Pulse Strength Pulse Strength [Apical] Normal Respiratory Rate 18 18 Respiratory Effort / Characteristics Non-Labored Spontaneous Respiratory Depth Normal Respiratory Pattern Regular Blood Pressure Blood Pressure [Right Arm] 145/78 H Blood Pressure Mean Blood Pressure Mean [Right Arm] 100 Blood Pressure Position Blood Pressure Position [Right Arm] Lying Pulse Oximetry 96 96 96 Oxygen Delivery Method Nasal Cannula Nasal Cannula Nasal Cannula Oxygen Flow Rate 4 4 4 Sepsis Recent Fever Within 48 Hours Sepsis New/Unexplained Change in Mental Status Sepsis Action Taken by Nursing 09/27/23 06:00 09/27/23 07:35 Temperature Temperature Source Pulse Rate 105 H Pulse Rate [Apical] 95 H Pulse Rhythm Pulse Rhythm [Apical] Regular Pulse Strength Pulse Strength [Apical] Normal Respiratory Rate 18 Respiratory Effort / Characteristics Non-Labored Spontaneous Respiratory Depth Normal Respiratory Pattern Regular Blood Pressure Blood Pressure [Right Arm] 141/99 H Blood Pressure Mean Blood Pressure Mean [Right Arm] 113 Blood Pressure Position Blood Pressure Position [Right Arm] Lying Pulse Oximetry 98 Oxygen Delivery Method Nasal Cannula Oxygen Flow Rate 4 Sepsis Recent Fever Within 48 Hours Sepsis New/Unexplained Change in Mental Status Sepsis Action Taken by Nursing Laboratory Data 09/27/23 03:27 09/27/23 03:27 Lab Results 09/27/23 Range/Units 03:27 WBC 9.91 (4.8-10.8) K/ul RBC 3.88 L (4.20-5.40) M/uL Hgb 9.9 L (12.0-16.0) g/dl Hct 33.4 L (37.0-47.0) % MCV 86.1 (80.0-100.0) fL MCH 25.5 (25.0-34.0) pg MCHC 29.6 L (32.0-36.0) g/dL RDW Std Deviation 54.1 H (36.4-46.3) fL RDW Coeff of Kaitlyn 17.1 H (11.5-14.5) % Plt Count 204 (130-400) K/uL MPV 9.0 L (9.4-12.4) fL Immature Gran % (Auto) 0.5 % Neut % (Auto) 79.5 % Lymph % (Auto) 12.3 % [place] % (Auto) 5.1 % Eos % (Auto) 2.3 % Baso % (Auto) 0.3 % Neut # (Auto) 7.87 H (1.40-6.50) K/uL Lymph # (Auto) 1.22 (1.20-3.40) K/uL [place] # (Auto) 0.51 (0.11-0.59) K/uL Eos # (Auto) 0.23 (0.00-0.50) K/uL Baso # (Auto) 0.03 (0.00-0.20) K/uL Immature Gran # (Auto) 0.05 (0.01-0.20) K/uL PT 11.2 (9.0-12.0) Seconds INR 1.0 (0.9-1.1) APTT 40 H (21-31) Seconds PTT Ratio 1.4 Sodium 142 (136-145) mmol/L Potassium 4.6 (3.5-5.1) mmol/L Chloride 108 H (98-107) mmol/L Carbon Dioxide 28 (21-32) mmol/L Anion Gap 6 (3-11) BUN 28 H (6-23) mg/dl Creatinine 1.63 H (0.6-1.2) mg/dl Est Cr Clr Drug Dosing Not Reportable Est GFR ( Amer) 40.7 ml/min Est GFR (Non-Af Amer) 35.1 ml/min BUN/Creatinine Ratio 17.2 (10-20) Glucose 163 H (70-99(Fasting)) mg/dl Calcium 8.9 (8.6-10.3) mg/dl Total Bilirubin 0.3 (0.2-1.0) mg/dl AST 10 L (13-39) U/L ALT 10 (7-52) U/L Alkaline Phosphatase 56 (34-104) U/L Troponin I High Sens 8.5 (0-14) pg/ml B-Natriuretic Peptide 167 H (0-100) pg/ml Total Protein 7.3 (6.0-8.3) gm/dl Albumin 4.0 (3.4-5.0) gm/dl Globulin 3.3 (2.5-4.0) gm/dl Albumin/Globulin Ratio 1.2 (0.9-2) Adenovirus (PCR) Not Detected (NotDetected) B. pertussis DNA (PCR) Not Detected (NotDetected) B.parapertussis DNA PCR Not Detected (NotDetected) C. pneumoniae DNA (PCR) Not Detected (NotDetected) Coronavirus OC43 (PCR) Not Detected (NotDetected) Coronavirus HKU1 (PCR) Not Detected (NotDetected) Coronavirus 229E (PCR) Not Detected (NotDetected) SARS-CoV-2 (PCR) Not Detected (NotDetected) Coronavirus NL63 (PCR) Not Detected (NotDetected) Human Metapneumovir PCR DETECTED A (NotDetected) Influenza Type A (PCR) Not Detected (NotDetected) Influenza Type B (PCR) Not Detected (NotDetected) M. pneumoniae (PCR) Not Detected (NotDetected) Parainfluenza 1 (PCR) Not Detected (NotDetected) Parainfluenza 2 (PCR) Not Detected (NotDetected) Parainfluenza 3 (PCR) Not Detected (NotDetected) Parainfluenza 4 (PCR) Not Detected (NotDetected) RSV (PCR) Not Detected (NotDetected) Entero/Rhino (PCR) Not Detected (NotDetected) Administered Medications Doxycycline Hyclate 100 mg/ (Dextrose) 100 mls @ 50 mls/hr IV NOW STA Stop: 09/27/23 08:02 Last Admin: 09/27/23 07:52 Dose: 50 mls/hr Documented By: VIKAS Discontinued Medications Albuterol (Albut/Ipratrop 3mg/0.5mg Neb 3 Ml Vial) 3 ml NEB NOW STA; Protocol Stop: 09/27/23 06:18 Last Admin: 09/27/23 06:43 Dose: 3 ml Documented By: IDShyann Cefepime HCl 2,000 mg/ Syringe 20 mls @ 5 mls/min IV NOW STA; Protocol Stop: 09/27/23 06:06 Last Admin: 09/27/23 07:54 Dose: 5 mls/min Documented By: VIKAS Imaging Data Radiologist's Impression: Chest X-Ray 09/27/23 03:28 XR chest 1V portable HISTORY: Chest pain, nonspecific COMPARISON: Chest 06/09/2017. FINDINGS: Interval development of a large left pleural effusion with near complete opacification of the left hemithorax. No pneumothorax. The heart remains enlarged. There are low lung volumes. There is central pulmonary vascular congestion without overt edema. A right shoulder prosthesis is noted. IMPRESSION: Interval development of a large left pleural effusion. ACT 112: Negative or not required by law. Electronically signed by: Arnulfo Weems M.D. 09/27/2023 8:04 AM Discharge Plan Visit Data Chief Complaint: Shortness of Breath/Dyspnea Stated Complaint: SHORTNESS OF BREATH, ABDOMINAL PAIN ED Provider: Stevan Richmond Discharge Problem: Pneumonia involving left lung, Anemia, Infection due to human metapneumovirus (hMPV), Shortness of breath, Elevated brain natriuretic peptide (BNP) level Forms Stand Alone Forms: My [facility] Prescriptions Prescriptions: No Action fenofibrate nanocrystallized 48 mg tablet 48 mg PO QAM famotidine 20 mg tablet 20 mg PO BID ferrous sulfate 325 mg (65 mg iron) tablet 325 mg PO DAILY melatonin 3 mg capsule 3 mg PO HS PRN (Reason: Sleep) pantoprazole 20 mg tablet,delayed release (DR/EC) 20 mg PO DAILY Trulicity 0.75 mg/0.5 mL pen injector 0.75 mg subcut WK magnesium hydroxide [Milk of Magnesia] 400 mg/5 mL Suspension 30 ml PO DAILY PRN (Reason: Constipation) levothyroxine 50 mcg Tablet 50 mcg PO DAILY bisacodyl [Dulcolax (bisacodyl)] 10 mg Suppository 10 mg WY DAILY PRN (Reason: Constipation) Fleet Enema 19-7 gram/118 mL Enema 118 ml WY DAILY PRN (Reason: Constipation) nystatin 100,000 unit/gram Powder 1 applic TOPICAL TID oxycodone 5 mg Tablet 5 mg PO Q4 PRN (Reason: Pain) cholecalciferol (vitamin D3) [Vitamin D3] 2,000 unit Tablet 2,000 unit PO DAILY gabapentin 300 mg Capsule 300 mg PO TID Rx Instructions: 0830,1230,1630 rosuvastatin [Crestor] 20 mg Tablet 20 mg PO HS insulin detemir U-100 100 unit/mL Solution 60 unit SUBCUT HS insulin aspart U-100 [Novolog U-100 Insulin aspart] 100 unit/mL Solution 15 - 30 unit SUBCUT TIDM Rx Instructions: 15 UNITS QAM/30 UNITS AT LUNCH AND DINNER insulin aspart U-100 [Novolog U-100 Insulin aspart] 100 unit/mL Solution 1 sliding scale dose SUBCUT USEASDIRECTD paroxetine HCl [Paxil] 30 mg Tablet 30 mg PO QAM bupropion HCl [Wellbutrin XL] 300 mg Tablet Extended Release 24 Hr 300 mg PO QAM chlorpromazine 25 mg tablet 25 mg PO QAM chlorpromazine 25 mg Tablet 125 mg PO HS Patient Comments: per centre care record takes 5 tablets to equal 125mg at hs carboxymethylcellulose sodium [Refresh Plus] 0.5 % Dropperette 2 drp OPHTHALMIC (EYE) Q8 PRN (Reason: Dry Eye(S)) Referrals Referrals: [facility] [Primary Care Provider] -
[2023-09-27] MEDS: DOXYCYCLINE HYCLATE 100 MG in DEXTROSE 5% MINI-B 100 ML IV STA (07:52)
[2023-09-27] MEDS: CEFEPIME 2,000 MG in SYRINGE 0 ML IV STA (07:54)
--- NOTE | 2023-09-27 08:05 | XRay Report ---
XR chest 1V portable HISTORY: Chest pain, nonspecific COMPARISON: Chest 06/09/2017. FINDINGS: Interval development of a large left pleural effusion with near complete opacification of t he left hemithorax. No pneumothorax. The heart remains enlarged. There are low lung volumes. There is central pulmonary vascular congestion without overt edema. A right shoulder prosthesis is noted. IMPRESSION: Interval development of a large left pleural effusion. ACT 112: Negative or not required by law. Electronically signed by: Arnulfo Weems M.D. 09/27/2023 8:04 AM
[2023-09-27] MEDS ORDERED: POLYETHYLENE (MIRALAX) 17 GM PACK PO PRN (08:50)
--- NOTE | 2023-09-27 09:02 | History & Physical Report ---
Date of Service September 27, 2023 Assessment & Plan (1) Acute hypoxic respiratory failure: (2) Infection due to human metapneumovirus (hMPV): (3) Depression: (4) Depression with suicidal ideation: (5) Pleural effusion: (6) Bipolar disorder: (7) CKD (chronic kidney disease) stage 4, GFR 15-29 ml/min: (8) Diabetes mellitus, type 2: (9) GERD (gastroesophageal reflux disease): Plan Pt is a 53 yo female with a past medical history of depression with suicidal ideation, bipolar disorder, CKD stage 4 secondary to DMT2 on insulin, pituitary tumor s/p resection 1995, hypothyroidism, hx CVA, GERD, chronic back pain, JOE/OHS not on bipap or CPAP at night, and chronic 2L O2 use who [facility] for respiratory distress. #Acute hypoxic resp failure #Large L pleural effusion - CXR and chest CT note large L pleural effusion - biofire + for metapneumovirus - CHF vs pneumonia vs other underlying etiology - bnp 167 on admission, echo pending - pulm consulted; appreciate recs - continue O2 via NC as needed - continue duoneb #Metapneumovirus + - procal 0.08, so URI symptoms most likely viral in nature - continue supportive care #CKD stage 4 - last nephro note in our system was 11/2020 - most likely secondary to her DMT2 - baseline Cr around 1.5 or so - Cr on admission 1.63 #DMT2 on insulin - will hold home trulicity - insulin glarg 20 units BID - novolog CF 25, carb ratio 10 #Hypothyroidism - most recent TSH 09/2023 was 2.3 - continue home levothyroxine #GERD - continue home pantoprazole and famotidine #Depression #Bipolar disorder - continue home aripiprazole - continue home Thorazine - continue home bupropion - continue home paroxetine - note that Thorazine may interact with abilify and bupropion and cause QT prolongation but could have withdrawal symptoms if stopped so will continue for now #CAD - continue home rosuvastatin #Chronic back pain #Diabetic neuropathy - continue home gabapentin DVT ppx: deferred for now due to possible need for intervention by pulm NPO pending pulm intervention. History of Present Illness Chief Complaint: Shortness of breath Primary Care Provider: [facility] Pt is a 53 yo female with a past medical history of depression with suicidal ideation, bipolar disorder, CKD stage 4 secondary to DMT2 on insulin, pituitary tumor s/p resection 1995, hypothyroidism, hx CVA, GERD, chronic back pain, JOE/OHS not on bipap or CPAP at night, and chronic 2L O2 use who [facility] for [facility] distress. Pt states that for the past 2 weeks she has had symptoms of cough, congestion, and shortness of breath that has progressively worsened. She states her legs have also been swollen but this is a chronic problem, but has been a bit worse the past 2 weeks with some associated soreness but no rashes or lesions anywhere that she knows about. Also notes some dysuria. States she cannot get herself up to go to the bathroom so she goes on the pads and then has them changed. She is not ambulatory according to her. She also states she is typically on 2L oxygen 24 hours a day and has been for years, no cpap or bipap device at nighttime according to her. Overall states that today she is feeling unwell and having significant shortness of breath. Also has a headache and nausea this morning with occasional dry heaves. Allergies Allergy/AdvReac Type Severity Reaction Status Date / Time metformin Allergy Unknown Unknown Verified 08/19/21 10:39 reaction (per [facility] records) phenytoin [From Dilantin] Allergy Unknown Unknown Verified 08/19/21 10:39 reaction (per [facility] records) acetaminophen AdvReac Intermediate Nausea Verified 08/19/21 10:39 hydromorphone AdvReac Intermediate Bradycardia Verified 08/19/21 10:39 tramadol AdvReac Unknown N/V Verified 08/19/21 10:39 Home Medications Medication Instructions Recorded Confirmed Type paroxetine HCl 30 mg tablet (Paxil) 30 mg PO QAM 09/07/18 09/27/23 History rosuvastatin 20 mg tablet (Crestor) 20 mg PO HS 09/07/18 09/27/23 History bisacodyl 10 mg rectal suppository 10 mg WI DAILY PRN Constipation 01/12/19 09/27/23 History (Dulcolax (bisacodyl)) cholecalciferol (vitamin D3) 50 2,000 unit PO QAM 01/12/19 09/27/23 History mcg (2,000 unit) tablet (Vitamin D3) levothyroxine 50 mcg tablet 50 mcg PO DAILY 01/12/19 09/27/23 History magnesium hydroxide 400 mg/5 mL 2,400 mg PO DAILY PRN Constipation 01/12/19 09/27/23 History oral suspension (Milk of Magnesia) oxycodone 5 mg tablet 5 mg PO Q6H PRN Pain 01/12/19 09/27/23 History sodium phosphates 19 gram-7 118 ml WI DAILY PRN Constipation 01/12/19 09/27/23 History gram/118 mL enema (Fleet Enema) famotidine 20 mg tablet 20 mg PO BID 02/24/21 09/27/23 History ferrous sulfate 325 mg (65 mg 325 mg PO DAILY 02/24/21 09/27/23 History iron) tablet melatonin 3 mg capsule 3 mg PO HS PRN Insomnia 02/24/21 09/27/23 History pantoprazole 20 mg tablet,delayed 20 mg PO DAILY 02/24/21 09/27/23 History release fenofibrate nanocrystallized 48 mg 48 mg PO QAM 06/03/21 09/27/23 History tablet carboxymethylcellulose sodium 0.5 2 drp ophthalmic (eye) Q8 PRN Dry 08/06/21 09/27/23 History % eye drops in a dropperette Eye(S) (Refresh Plus) acetaminophen 325 mg tablet 650 mg PO Q6H PRN pain/Fever 09/27/23 09/27/23 History amoxicillin 500 mg-potassium 1 tab PO BID 09/27/23 09/27/23 History clavulanate 125 mg tablet aripiprazole 5 mg tablet 5 mg PO BID 09/27/23 09/27/23 History dulaglutide 1.5 mg/0.5 mL 1.5 mg subcut WK 09/27/23 09/27/23 History subcutaneous pen injector (Trulicity) gabapentin 400 mg tablet 400 mg PO TID 09/27/23 09/27/23 History glucagon HCl 1 mg solution for 1 mg IM UD PRN Low BSG 09/27/23 09/27/23 History injection (Glucagon (HCl) Emergency Kit) insulin aspart U-100 100 unit/mL 1 sliding scale dose subcut UD 09/27/23 09/27/23 History subcutaneous solution insulin aspart U-100 100 unit/mL 10 unit subcut TIDWMEAL 09/27/23 09/27/23 History subcutaneous solution insulin detemir U-100 100 unit/mL 38 unit subcut HS 09/27/23 09/27/23 History subcutaneous solution (Levemir U-100 Insulin) ipratropium 0.5 mg-albuterol 3 mg 3 ml inhalation Q2H PRN Shortness 09/27/23 09/27/23 History (2.5 mg base)/3 mL nebulization Of Breath Or Wheezing soln ipratropium 20 mcg-albuterol 100 1 puff inhalation Q6H PRN Wheezing 09/27/23 09/27/23 History mcg/actuation mist for inhalation or Shortness of breath (Combivent Respimat) loperamide 2 mg capsule 2 mg PO Q2H PRN Diarrhea 09/27/23 09/27/23 History Past Med/Surg History Medical History (Updated 09/27/23 @ 14:35 by Traci Hedrick DO) Diabetic retinopathy of both eyes without macular edema associated with diabetes mellitus due to underlying condition Vitamin B deficiency Hemoperitoneum CKD (chronic kidney disease) stage 4, GFR 15-29 ml/min follows with [facility] nephrology, Cr range 1.7-2.0 over past 1+ yr Bipolar disorder stable per pt, established with psychiatry Resides in retirement facility [facility] Anemia Hgb range 9-10 over past several yrs History of subarachnoid hemorrhage After fall (2018) History of subdural hematoma After fall (2018) Nocturnal hypoxia Mild intellectual disabilities Muscle weakness (generalized) Diabetic nephropathy associated with type 2 diabetes mellitus Restless leg syndrome Obstructive sleep apnea non-compliant Morbid obesity Nemo's syndrome, unspecified Gastroparesis Hyperlipidemia Panic disorder Major depressive disorder, recurrent Pericardial effusion Pt and staff unsure, not noted in facility records GERD (gastroesophageal reflux disease) Hypothyroidism Diabetes mellitus, type 2 IDDM, Pt reports intermittent episodes of hypoglycemia in setting of fasting and requests early surgery time CVA (cerebral infarction) 07/2013 Pituitary tumor s/p resection (1995) Surgical History History of cataract surgery Left History of open reduction and internal fixation (ORIF) procedure Right humerus History of shoulder replacement Right History of surgery Pituitary tumor excision (1995) History of section History of laparoscopic cholecystectomy History of esophagogastroduodenoscopy (EGD) History of colonoscopy History of revision of total replacement of right shoulder joint H/O tubal ligation Family History Father Family history of diabetes mellitus Mother Family history of diabetes mellitus Grandfather Family hx of colon cancer Social History Smoking Status: Never smoker Do You Dip or Chew Tobacco: No; Hx Alcohol Use: No Hx Substance Use: No Preferred Language: Macedonian Communication Ability: Effective Communication Ability Comment: per [facility] pt is of sound mind to sign own consent Animal Pathology Teacher Required: No Beliefs That Will Affect Care: None marital status: Single Current Living Situation: Snf Current Living Situation Comment: [facility] current occupational status: unemployed Other Information That Helps Us Care for You: No Feels Safe at Home: Yes Safety Concerns: Feels Safe At This Time Assistive Devices: Oxygen - Continuous, Walker and Wheelchair Review of Systems Review of Systems: Per HPI. Physical Exam Physical Exam: General: Alert and awake but fatigued appearing HEENT: Normocephalic, moist oral mucosa, Cardio: Regular rate and rhythm, no murmur, Resp: Vastly diminished breath sounds on the L side throughout, with subpar air movement on the R, increased resp effort noted GI: Soft but tender diffusely, bowel sounds active MSK: 2+ pitting edema of B/L lower extremities Skin: Warm, pink, dry, no rashes or ulcers noted on visible skin Psych: Mood-affect congruence. Results & Data Results & Data Vital Signs (Past 12 Hours) Vital Signs Temp Pulse Pulse Resp BP BP Pulse Ox 09/27/23 07:35 105 H 09/27/23 06:00 95 H 18 141/99 H 98 09/27/23 03:28 108 H 18 96 09/27/23 03:28 37.3 C 108 H 18 145/78 H 96 09/27/23 03:28 96 09/27/23 03:28 37.3 C 108 H 18 145/78 H 96 09/27/23 03:28 09/27/23 03:24 112 H O2 Del Method O2 Flow Rate 09/27/23 07:35 09/27/23 06:00 Nasal Cannula 4 09/27/23 03:28 Nasal Cannula 4 09/27/23 03:28 Nasal Cannula 4 09/27/23 03:28 Nasal Cannula 4 09/27/23 03:28 Nasal Cannula 4 09/27/23 03:28 Nasal Cannula 4 09/27/23 03:24 Supervising Physician Co-Signing Physician Notes I personally examined the patient and verified all dougherty points of history and exam, discussed case, and agree with decision making with Dr Hedrick feeling ok post chest tube placement. has some pain but breathing better vitals noted nad except for occassional grabbing chest with deep breath lungs faintly coarse L sided but good air entry clear but quiet R massive effusion - ?etiology - given viral panel parapneumonic from human metapneumo would fit, but does not appear to have ongoing pneumonia. await fluid studies, pain control w chest tube, continue to follow closely otherwise as above, lovenox DVT proph Resident Activity Tracking Resident Involvement: Resident Care Provided Care Provided: Adult Hospital Medicine
--- NOTE | 2023-09-27 09:02 | CT Scan Report ---
CT chest diagnostic wo con CT DOSE: 857.43 mGy.cm HISTORY: hypoxia TECHNIQUE: Multiaxial CT images of the chest were performed without contrast. A dose lowering techni que was utilized adhering to the principles of ALARA. COMPARISON: Chest CT 10/02/2016. FINDINGS: Suboptimal evaluation of the chest due to the motion artifact and lack of intravenous contr ast. The central airways are patent. No pneumothorax. Interval development of a large left pleural ef fusion resulting in near complete compressive atelectasis of the left upper lobe and complete kimmie sive atelectasis of the left lower lobe. This also results in mild right mediastinal shift. There are mild dependent changes seen at the right lung base. Evaluation poor an underlying left lung mass is essentially nondiagnostic due to the left pleural effusion. There is a trace pericardial effusion, un changed. Subcentimeter mediastinal lymph nodes do not meet CT criteria for pathologic involvement. No right hilar lymphadenopathy. The left hilum is obscured. Normal caliber esophagus. Normal caliber th oracic aorta. Mild coronary artery calcifications are noted. The heart is borderline enlarged. Limite d views of the upper abdomen demonstrate a normal liver, spleen, and adrenal glands. Mild body wall e noelle is noted. No axillary lymphadenopathy. No definite pleural masses on this noncontrast study. The re is a right shoulder prosthesis. There is suggestion of anterior dislocation/subluxation of the hum eral head prosthesis in relation to the glenoid. This could be chronic. There is a subacute/chronic f racture within the right glenoid suggested. Multiple healing/healed right-sided rib fractures. There are old, healed left anterior rib fractures. IMPRESSION: 1. Interval development of a large left pleural effusion resulting in mild right mediastinal shift. 2. Complete compressive atelectasis of the left lower lobe with near complete compressive atelectasis of the left upper lobe due to the large pleural effusion. An underlying pulmonary lesion/abnormality would be difficult to exclude given the large left pleural effusion. However, no pulmonary lesions i dentified. Therefore, contrast enhanced chest CT follow-up recommended once the patient's pleural eff usion has resolved. 3. Subacute/healing fractures within the right glenoid and right ribs. There appears to be anterior s ubluxation/dislocation of the right humeral head prosthesis in relation to the glenoid. 4. Additional findings as described above. ACT 112: Negative or not required by law. Electronically signed by: Arnulfo Weems M.D. 09/27/2023 9:00 AM
[2023-09-27] MEDS ORDERED: GLUCOSE 40% GEL 15 GM TUBE PO PRN (09:18)
[2023-09-27] MEDS ORDERED: DEXTROSE 50% 50 ML SYRINGE IV PRN (09:18)
[2023-09-27] MEDS ORDERED: GLUCOSE 10 TAB/TUBE PO PRN (09:18)
[2023-09-27] MEDS ORDERED: GLUCAGON FOR INJ 1 MG VIAL SQ PRN (09:18)
[2023-09-27 09:56] LABS: Base Excess VBG 2.9 mEq/L; HCO3 VBG 30 mmol/L; Oxygen Saturation VBG 65.9 %; PCO2 VBG 54 mmHg (38-50); PO2 VBG 41 mmHg; pH VBG 7.35 (7.36-7.41)
--- NOTE | 2023-09-27 10:16 | Pulmonary Consultation ---
Date of Consultation September 27, 2023 Assessment & Plan (1) Shortness of breath: (2) Pleural effusion: (3) Infection due to human metapneumovirus (hMPV): Plan IMPRESSION: 53-year-old female with a past pulmonary history significant for obstructive sleep apnea not currently managed on CPAP who presents with findings of large LEFT-sided effusion in the setting of human metapneumovirus infection. Pulmonary medicine consulted given the patient's complaints of shortness of breath. She is saturating well on 2 L nasal cannula which she wears at all times. She does appear somewhat uncomfortable on exam and she does have some mild discomfort with deep inspiration. RECOMMENDATIONS: 1. LEFT-sided pleural effusion - Of uncertain etiology at this point. Certainly could be found in the setting of current human metapneumovirus infection versus congestive heart failure versus malignancy versus multiple other underlying causes. Given the significance of the effusion, patient will likely require removal of pleural fluid and characterization upon doing so. Consideration for standard thoracentesis with removal of fluid versus placement of pigtail catheter with ongoing drainage over the next 24 to 48 hours. Would likely favor the latter given patient's morbid obesity, likely poor compliance with procedure process, and risk for reaccumulation and need for serial thoracenteses. Reviewed procedures with the patient who is agreeable to either approach. Will discuss with my attending physician. Patient is not on anticoagulation and there does not appear to be any other precluding factors to undergoing procedure later this afternoon. 2. Shortness of breath - Multifactorial in the 53-year-old female who is morbidly obese with untreated JOE, current human metapneumovirus infection, and findings of large RIGHT-sided effusion. Hopefully symptoms improve status post removal of pleural fluid. 3. Human metapneumovirus infection - Continue with supportive measures as you are. Mucinex may be helpful for her cough and sputum production. Uncertain of the utility of antibiotics in a patient with known pneumo virus infection without elevated white blood cell count, fever, or elevated procalcitonin. Can certainly reassess the patient's lung parenchyma after removal of pleural fluid to assess for possible infiltrative findings warranting intravenous antibiotic administration. Thank you for allowing us to participate in the care of this patient. Pulmonary medicine will continue to follow along. Supervising Physician Co-Signing Physician Notes Patient seen and examined. EMR reviewed. Discussed with BETHANY and agree with assessment plan as noted. Patient is admitted with a massive left-sided effusion. Drainage is indicated. Will plan on a pigtail catheter given the patient's body habitus and inability to be compliant with potentially need for repeated procedures. Fluid will be sent for microbiologic and cytologic analysis. Will defer management of the patient's other medical issues to the admitting service. Will perform daily chest x-rays. Additional recommendations will be based on characterization of the patient's pleural fluid as well as imaging post catheter placement. History of Present Illness Reason for Consultation: Resp distress, large L pleural effusion Requesting Physician: Dr. Hedrick History of Present Illness Patient is a 53-year-old female with a significant psychiatric history, CKD 3, type 2 diabetes, history of pituitary tumor status post resection, hypothyroidism, prior history of CVA, GERD, chronic back pain, and JOE not managed on positive pressure therapy who presented to the emergency department with complaints of shortness of breath which has progressed over the last 3 to 4 weeks. She reports that she had noticed a cough initially, but now reports shortness of breath even when laying flat. She reports some mild pleuritic pain. No hemoptysis. Mild production of cough of yellowish sputum. No fevers or chills that she is aware of. No chest pain, palpitations, dizziness, lightheadedness, or presyncope. The patient reports no prior history of pulmonary disease processes. She does not utilize inhalers in the outpatient setting. She has never experienced a pleural effusion in the past. Patient is a poor historian and difficult to obtain significant historical information. Allergies Allergy/AdvReac Type Severity Reaction Status Date / Time metformin Allergy Unknown Unknown Verified 08/19/21 10:39 reaction (per S records) phenytoin [From Dilantin] Allergy Unknown Unknown Verified 08/19/21 10:39 reaction (per S records) acetaminophen AdvReac Intermediate Nausea Verified 08/19/21 10:39 hydromorphone AdvReac Intermediate Bradycardia Verified 08/19/21 10:39 tramadol AdvReac Unknown N/V Verified 08/19/21 10:39 Home Medications Medication Instructions Recorded Confirmed Type paroxetine HCl 30 mg tablet (Paxil) 30 mg PO QAM 09/07/18 09/27/23 History rosuvastatin 20 mg tablet (Crestor) 20 mg PO HS 09/07/18 09/27/23 History bisacodyl 10 mg rectal suppository 10 mg MI DAILY PRN Constipation 01/12/19 09/27/23 History (Dulcolax (bisacodyl)) cholecalciferol (vitamin D3) 50 2,000 unit PO QAM 01/12/19 09/27/23 History mcg (2,000 unit) tablet (Vitamin D3) levothyroxine 50 mcg tablet 50 mcg PO DAILY 01/12/19 09/27/23 History magnesium hydroxide 400 mg/5 mL 2,400 mg PO DAILY PRN Constipation 01/12/19 09/27/23 History oral suspension (Milk of Magnesia) oxycodone 5 mg tablet 5 mg PO Q6H PRN Pain 01/12/19 09/27/23 History sodium phosphates 19 gram-7 118 ml MI DAILY PRN Constipation 01/12/19 09/27/23 History gram/118 mL enema (Fleet Enema) famotidine 20 mg tablet 20 mg PO BID 02/24/21 09/27/23 History ferrous sulfate 325 mg (65 mg 325 mg PO DAILY 02/24/21 09/27/23 History iron) tablet melatonin 3 mg capsule 3 mg PO HS PRN Insomnia 02/24/21 09/27/23 History pantoprazole 20 mg tablet,delayed 20 mg PO DAILY 02/24/21 09/27/23 History release fenofibrate nanocrystallized 48 mg 48 mg PO QAM 06/03/21 09/27/23 History tablet carboxymethylcellulose sodium 0.5 2 drp ophthalmic (eye) Q8 PRN Dry 08/06/21 09/27/23 History % eye drops in a dropperette Eye(S) (Refresh Plus) acetaminophen 325 mg tablet 650 mg PO Q6H PRN pain/Fever 09/27/23 09/27/23 History amoxicillin 500 mg-potassium 1 tab PO BID 09/27/23 09/27/23 History clavulanate 125 mg tablet aripiprazole 5 mg tablet 5 mg PO BID 09/27/23 09/27/23 History dulaglutide 1.5 mg/0.5 mL 1.5 mg subcut WK 09/27/23 09/27/23 History subcutaneous pen injector (Trulicity) gabapentin 400 mg tablet 400 mg PO TID 09/27/23 09/27/23 History glucagon HCl 1 mg solution for 1 mg IM UD PRN Low BSG 09/27/23 09/27/23 History injection (Glucagon (HCl) Emergency Kit) insulin aspart U-100 100 unit/mL 1 sliding scale dose subcut UD 09/27/23 09/27/23 History subcutaneous solution insulin aspart U-100 100 unit/mL 10 unit subcut TIDWMEAL 09/27/23 09/27/23 History subcutaneous solution insulin detemir U-100 100 unit/mL 38 unit subcut HS 09/27/23 09/27/23 History subcutaneous solution (Levemir U-100 Insulin) ipratropium 0.5 mg-albuterol 3 mg 3 ml inhalation Q2H PRN Shortness 09/27/23 History (2.5 mg base)/3 mL nebulization Of Breath Or Wheezing soln ipratropium 20 mcg-albuterol 100 1 puff inhalation Q6H PRN Wheezing 09/27/23 09/27/23 History mcg/actuation mist for inhalation or Shortness of breath (Combivent Respimat) loperamide 2 mg capsule 2 mg PO Q2H PRN Diarrhea 09/27/23 09/27/23 History Patient History Medical History (Updated 09/27/23 @ 14:35 by Traci Hedrick DO) Diabetic retinopathy of both eyes without macular edema associated with diabetes mellitus due to underlying condition Vitamin B deficiency Hemoperitoneum CKD (chronic kidney disease) stage 4, GFR 15-29 ml/min follows with [facility] nephrology, Cr range 1.7-2.0 over past 1+ yr Bipolar disorder stable per pt, established with psychiatry Resides in correction facility [facility] Anemia Hgb range 9-10 over past several yrs History of subarachnoid hemorrhage After fall (2019) History of subdural hematoma After fall (2019) Nocturnal hypoxia Mild intellectual disabilities Muscle weakness (generalized) Diabetic nephropathy associated with type 2 diabetes mellitus Restless leg syndrome Obstructive sleep apnea non-compliant Morbid obesity [place]'s syndrome, unspecified Gastroparesis Hyperlipidemia Panic disorder Major depressive disorder, recurrent Pericardial effusion Pt and staff unsure, not noted in facility records GERD (gastroesophageal reflux disease) Hypothyroidism Diabetes mellitus, type 2 IDDM, Pt reports intermittent episodes of hypoglycemia in setting of fasting and requests early surgery time CVA (cerebral infarction) 07/2013 Pituitary tumor s/p resection (1995) Surgical History History of cataract surgery Left History of open reduction and internal fixation (ORIF) procedure Right humerus History of shoulder replacement Right History of surgery Pituitary tumor excision (1995) History of section History of laparoscopic cholecystectomy History of esophagogastroduodenoscopy (EGD) History of colonoscopy History of revision of total replacement of right shoulder joint H/O tubal ligation Family History Father Family history of diabetes mellitus Mother Family history of diabetes mellitus Grandfather Family hx of colon cancer Social History Smoking Status: Never smoker Do You Dip or Chew Tobacco: No; Hx Alcohol Use: No Hx Substance Use: No Preferred Language: American Communication Ability: Effective Communication Ability Comment: per [facility] pt is of sound mind to sign own consent [employer] Observer Helper Required: No Beliefs That Will Affect Care: None marital status: Single Current Living Situation: Skilled Nursing Current Living Situation Comment: [facility] current occupational status: unemployed Other Information That Helps Us Care for You: No Feels Safe at Home: Yes Safety Concerns: Feels Safe At This Time Assistive Devices: Oxygen - Continuous, Walker and Wheelchair Review of Systems Review of Systems: A complete 10 point review of systems was reviewed with the patient with pertinent positives and negatives as per history of present illness. All else were negative. Physical Exam Physical Exam: VITAL SIGNS - Vital signs and nursing notes were reviewed. GENERAL - 53-year-old female appearing older than her stated age who is in no acute distress. SKIN - Without rashes or lesions. NOSE - Midline and without cyanosis. MOUTH/OROPHARYNX - Without perioral cyanosis. NECK - Neck with FROM. LUNGS - Auscultation reveals diminished breath sounds on the LEFT. CARDIAC - RRR with S1/S2. No murmur, rubs, or gallops appreciated. ABDOMEN - Abdominal inspection demonstrates an obese abdomen. BS normoactive all four quadrants. No tenderness, palpable masses, or ascites noted. EXTREMITIES - Nail clubbing not present. No peripheral cyanosis. Moderate pretibial edema present. +3/5 radial palpated throughout. PSYCH - A&Ox3 and cooperates fully with examiner. Pt is very pleasant and interacts well with examiner. Results & Data Results & Data Vital Signs (Past 12 Hours) Vital Signs Temp Pulse Pulse Resp BP BP Pulse Ox 09/27/23 09:40 102 H 28 H 93 09/27/23 09:30 101 H 25 H 95 09/27/23 09:20 102 H 26 H 94 09/27/23 09:10 101 H 22 95 09/27/23 09:00 102 H 25 H 95 09/27/23 09:00 152/80 H 09/27/23 09:00 102 H 23 152/80 H 94 09/27/23 08:50 102 H 25 H 94 09/27/23 08:40 102 H 20 98 09/27/23 08:30 102 H 23 98 09/27/23 08:22 103 H 25 H 98 09/27/23 08:01 103 H 25 H 96 09/27/23 08:01 143/65 H 09/27/23 08:00 103 H 22 96 09/27/23 08:00 102 H 23 143/65 H 96 09/27/23 07:50 103 H 21 97 09/27/23 07:40 103 H 21 96 09/27/23 07:35 105 H 09/27/23 07:30 106 H 24 94 09/27/23 07:20 106 H 23 95 09/27/23 07:10 104 H 23 94 09/27/23 07:00 104 H 25 H 95 09/27/23 06:50 101 H 26 H 95 09/27/23 06:40 99 H 18 95 09/27/23 06:30 102 H 23 96 09/27/23 06:20 100 H 20 96 09/27/23 06:10 98 H 18 97 09/27/23 06:00 100 H 22 96 09/27/23 06:00 141/99 H 09/27/23 06:00 95 H 18 141/99 H 98 09/27/23 05:50 99 H 18 97 09/27/23 05:40 100 H 19 97 09/27/23 05:30 101 H 19 97 09/27/23 05:20 101 H 18 97 09/27/23 05:10 101 H 18 97 09/27/23 05:00 102 H 20 97 09/27/23 05:00 139/83 09/27/23 04:50 104 H 20 97 09/27/23 04:40 104 H 20 97 09/27/23 04:30 107 H 24 94 09/27/23 04:20 105 H 20 96 09/27/23 04:10 106 H 20 96 09/27/23 04:00 108 H 20 96 09/27/23 04:00 131/60 09/27/23 03:50 100 H 22 97 09/27/23 03:40 109 H 22 95 09/27/23 03:30 113 H 19 96 09/27/23 03:28 108 H 18 96 09/27/23 03:28 37.3 C 108 H 18 145/78 H 96 09/27/23 03:28 96 09/27/23 03:28 37.3 C 108 H 18 145/78 H 96 09/27/23 03:28 09/27/23 03:27 112 H 26 H 96 09/27/23 03:27 145/78 H 09/27/23 03:24 113 H 22 96 09/27/23 03:24 112 H O2 Del Method O2 Flow Rate 09/27/23 09:40 09/27/23 09:30 09/27/23 09:20 09/27/23 09:10 09/27/23 09:00 09/27/23 09:00 09/27/23 09:00 Nasal Cannula 2 09/27/23 08:50 09/27/23 08:40 09/27/23 08:30 09/27/23 08:22 09/27/23 08:01 09/27/23 08:01 09/27/23 08:00 09/27/23 08:00 Nasal Cannula 2 09/27/23 07:50 09/27/23 07:40 09/27/23 07:35 09/27/23 07:30 09/27/23 07:20 09/27/23 07:10 09/27/23 07:00 09/27/23 06:50 09/27/23 06:40 09/27/23 06:30 09/27/23 06:20 09/27/23 06:10 09/27/23 06:00 09/27/23 06:00 09/27/23 06:00 Nasal Cannula 4 09/27/23 05:50 09/27/23 05:40 09/27/23 05:30 09/27/23 05:20 09/27/23 05:10 09/27/23 05:00 09/27/23 05:00 09/27/23 04:50 09/27/23 04:40 09/27/23 04:30 09/27/23 04:20 09/27/23 04:10 09/27/23 04:00 09/27/23 04:00 09/27/23 03:50 09/27/23 03:40 09/27/23 03:30 09/27/23 03:28 Nasal Cannula 4 09/27/23 03:28 Nasal Cannula 4 09/27/23 03:28 Nasal Cannula 4 09/27/23 03:28 Nasal Cannula 4 09/27/23 03:28 Nasal Cannula 4 09/27/23 03:27 09/27/23 03:27 09/27/23 03:24 09/27/23 03:24 PG Care Time/CCT Total # of Minutes Spent Total Time Spent with Patient: Total time spent is greater than 50% in coordination of care (as documented) at patient's floor/unit and/or counseling patient: Coding Level of Care Code 61191 INT INP/OBS CARE 3/75MIN Diagnoses Shortness of breath R06.02 Pleural effusion J90 Infection due to human metapneumovirus (hMPV) B34.8
[2023-09-27] MEDS: ONDANSETRON INJ 2 MG/ML 2 ML VIAL IV PRN (10:22)
[2023-09-27] MEDS ORDERED: ALBUT/IPRATROP 3MG/0.5MG NEB 3 ML VIAL NEB PRN (11:50)
[2023-09-27] MEDS ORDERED: MELATONIN 3 MG TAB PO PRN (13:03)
[2023-09-27] MEDS ORDERED: MAGNESIUM HYDROXIDE SUSP 30 ML UDC PO PRN (13:03)
[2023-09-27] MEDS: Patient's HEIGHT &/or WEIGHT Needed SCH (13:33)
[2023-09-27] MEDS: INSULIN ASPART PER UNIT CHARGE SC SCH (13:34)
--- NOTE | 2023-09-27 14:46 | Procedure Note ---
Procedure Note Date of Service September 27, 2023 Note Procedure: 14 Burmese pigtail catheter placement, left Indication: Large pleural effusion Consent risk and benefits were discussed with the patient. She agreed. Written consent was verified prior to commencement of the procedure. Roving Department End Finder Dr. Ospina Estimated blood loss: Less than 5 mL Anesthesia: 10 mL 1% lidocaine without epinephrine locally. Procedure: The patient has a large left-sided effusion with compressive atelectasis and mediastinal shift. She is unable to lie flat given her body habitus it was felt most prudent to proceed with tube drainage rather than serial thoracenteses. The patient was placed in a left side up decubitus position. An area in the inframammary fold and the anterior axillary line was identified and cleaned and draped in normal sterile fashion. Ultrasound had been performed previously this area and a pocket of fluid was identified. The skin was then anesthetized with lidocaine. The muscle and deeper soft tissues were anesthetized using a finder needle. Patient's body habitus did not allow for aspiration of fluid with the finder needle. The finder needle was then withdrawn. A small skin sahil was made with a scalpel. An 18-gauge needle was then advanced on a similar line until I was able to aspirate serous yellow fluid. The syringe was withdrawn leaving the needle in place. A wire was passed through the needle and then the needle was withdrawn leaving the wire in the pleural space. A 14 Burmese dilator was then passed over the wire to dilate the skin and soft tissues. This passed with ease. The dilator was removed leaving the wire in place. A 14 Burmese pigtail catheter was then loaded on a straightening catheter and advanced over the wire into the pleural space. The stiffening catheter and wire were removed leaving the pigtail catheter in place. The locking mechanism was secured. A three-way stopcock was attached. The tube was attached to suction with a 1+ airleak on the Pleur-evac system and about 600 cc of fara fluid removed. Fluid was inoculated at bedside and sent for microbiologic and cytologic analysis. A skater catheter fixation system was attached to the chest wall and the catheter secured. Catheter was attached to suction at 20 cm of water. Post procedure chest x-ray is pending. The patient tolerated the procedure well. Fluid will be sent for cell count differential, Gram stain and culture, pH, LDH, glucose, total protein, and cytology. Continue drainage for now. Will check daily chest x-ray Coding CPT Codes Pulmonary/Thoracic - Pulmonary and Thoracic: 90386 Tube thoracostomy ([id number]) Pulmonary/Thoracic - Pulmonary and Thoracic: 73069 US, Chest, real time with imaging documentation ([id number]) [facility] [place] (Charges) Pulmonary/Thoracic Procedure 1: Pulmonary and Thoracic: 76710 Tube thoracostomy Procedure 2: Pulmonary and Thoracic: 31045 US, Chest, real time with imaging documentation
[2023-09-27 15:15] LABS: Total Protein Pleural Fluid 4.3 gm/dl
--- NOTE | 2023-09-27 15:20 | XRay Report ---
XR chest 1V portable CLINICAL HISTORY: S/P Thoracentesis TECHNIQUE: Single frontal radiograph of the chest was obtained. Comparison: Comparison is made to chest radiograph 09/27/2023 FINDINGS: Left chest tube has been placed. Cardiomegaly is noted. The aortic arch is calcified. Interval improv ement in left lower lung airspace opacity. Vascular prominence is seen. Small left pleural effusion i s seen with no pneumothorax. IMPRESSION: 1. Significant improvement in left pleural effusion status post thoracentesis and chest tube placeme nt. A small effusion remains. No pneumothorax. 2. Cardiomegaly and mild pulmonary vascular prominence. ACT 112: Negative or not required by law. Electronically signed by: Jed Garzon M.D. 09/27/2023 3:17 PM
[2023-09-27] MEDS: ACETAMINOPHEN 325 MG TAB PO PRN (15:30)
[2023-09-27 15:31] LABS: Appearance Pleural Fluid Hazy; Color Pleural Fluid Amber; Eosinophils, Fluid 1 %; Lymphocytes, Fluid 7 %; Mono,Macrophage,Mesothelial 34 %; Neutrophils, Fluid 58 %; RBC Pleural Fluid Auto 13000 /uL; Source Pleural Fluid Left Lung; WBC Pleural Fluid Auto 1585 /uL
[2023-09-27] MEDS: PROCHLORPERAZINE 5 MG in SYRINGE 4 ML IV PRN (16:02)
[2023-09-27] MEDS: chlorproMAZINE HCL 25 MG TAB PO SCH ×2 (16:03→21:07)
[2023-09-27] MEDS: GABAPENTIN 300 MG CAP PO SCH (16:03)
[2023-09-27] MEDS: buPROPion XL 300 MG TABCR PO SCH (16:03)
[2023-09-27] MEDS: FAMOTIDINE 20 MG TAB PO SCH (16:03)
[2023-09-27] MEDS: LEVOTHYROXINE SODIUM 50 MCG TABLET PO SCH (16:04)
[2023-09-27] MEDS: PANTOprazole 40 MG TAB PO SCH (16:04)
[2023-09-27] MEDS: PARoxetine HCL 20 MG TAB PO SCH (16:04)
[2023-09-27] MEDS: DOCUSATE SODIUM 100 MG CAP PO ONE (16:21)
[2023-09-27] MEDS: POLYETHYLENE (MIRALAX) 17 GM PACK PO ONE (16:21)
--- NOTE | 2023-09-27 18:13 | Billing Data ---
Date of Service September 27, 2023 Coding Level of Care Code 34335 INT INP/OBS CARE
--- NOTE | 2023-09-27 19:00 | XCELERA ---
[id number] \\[email or web address]\[id number]
[2023-09-27] MEDS: LANTUS PER UNIT CHARGE SQ SCH (21:02)
[2023-09-27] MEDS: POLYETHYLENE (MIRALAX) 17 GM PACK PO SCH (21:03)
[2023-09-27] MEDS: ARIPiprazole 5 MG TAB PO SCH (21:06)
[2023-09-27] MEDS: DOCUSATE SODIUM 100 MG CAP PO SCH (21:07)
[2023-09-28 05:26] LABS: Hematocrit (blood only) 27.2 % (37.0-47.0); Hemoglobin 8.1 g/dl (12.0-16.0); Mean Corpuscular Hemoglobin 25.5 pg (25.0-34.0); Mean Corpuscular Hgb Conc 29.8 g/dL (32.0-36.0); Mean Corpuscular Volume 85.5 fL (80.0-100.0); Mean Platelet Volume 9.5 fL (9.4-12.4); Platelet Count 140 K/uL (130-400); RDW Coefficient of Variation 17.1 % (11.5-14.5); RDW Standard Deviation 54.2 fL (36.4-46.3); Red Blood Count 3.18 M/uL (4.20-5.40); White Blood Count 4.06 K/ul (4.8-10.8)
[2023-09-28 05:33] LABS: BUN Creatinine Ratio 18.4 (10-20); Calcium 8.3 mg/dl (8.6-10.3); Creatinine Clr Calc Pharmacy 48.2 ml/min; Est GFR (African American) 48.5 ml/min; Est GFR (Non-African American) 41.8 ml/min; Potassium 4.4 mmol/L (3.5-5.1)
--- NOTE | 2023-09-28 06:56 | Hospitalist Progress Note ---
Date of Service September 28, 2023 Assessment & Plan (1) Acute hypoxic respiratory failure: (2) Infection due to human metapneumovirus (hMPV): (3) Depression: (4) Depression with suicidal ideation: (5) Pleural effusion: (6) Bipolar disorder: (7) CKD (chronic kidney disease) stage 4, GFR 15-29 ml/min: (8) Diabetes mellitus, type 2: (9) GERD (gastroesophageal reflux disease): Plan Pt is a 53 yo female with a past medical history of depression with suicidal ideation, bipolar disorder, CKD stage 4 secondary to DMT2 on insulin, pituitary tumor s/p resection 1995, hypothyroidism, hx CVA, GERD, chronic back pain, JOE/OHS not on bipap or CPAP at night, and chronic 2L O2 use who [facility]. #Acute hypoxic resp failure, improved #Large L pleural effusion, improved s/p chest tube - CXR and chest CT note large L pleural effusion - biofire + for metapneumovirus - CHF vs pneumonia vs other underlying etiology - bnp 167 on admission, echo 09/26; EF 60-65%, no wall abnorm noted but study limited - continue O2 via NC as needed, continue duoneb - pulm consulted; chest tube placed 09/26, continue today #Metapneumovirus + - procal 0.08, so URI symptoms most likely viral in nature - continue supportive care #CKD stage 4 - last nephro note in our system was 11/2020 - most likely secondary to her DMT2 - baseline Cr around 1.5 or so - Cr on admission 1.63 #DMT2 on insulin - will hold home trulicity - insulin glarg 20 units BID - novolog CF 25, carb ratio 10 #Hypothyroidism - most recent TSH 09/2023 was 2.3 - continue home levothyroxine #GERD - continue home pantoprazole and famotidine #Depression #Bipolar disorder - continue home aripiprazole - continue home Thorazine - continue home bupropion - continue home paroxetine - note that Thorazine may interact with abilify and bupropion and cause QT prolongation but could have withdrawal symptoms if stopped so will continue for now #CAD - continue home rosuvastatin #Chronic back pain #Diabetic neuropathy - continue home gabapentin DVT ppx: Lovenox qam started 09/27 Admission and Anticipated Discharge Date Admission Date: September 27, 2023 Supervising Physician Co-Signing Physician Notes I personally examined the patient and verified all dougherty points of history and exam, discussed case, and agree with decision making with Dr Hedrick Feeling okay overall. Breathing better. No new complaints. vitals noted nad breathing unlabored no accessory muscle use good effort. Skin without rashes pallor or icterus. Neuro without focal deficits massive effusion -parapneumonic versus other. Await cultures and cytology. [facility] pain and vaginal bleedingthey had been working on CT abdomen pelvis as well as CERTIFIED NURSE OPERATING ROOM evaluationgiven the effusion is exudative, and there is concernwill follow through with CT abdomen pelvis, PCP noted they will continue to facilitate CERTIFIED NURSE OPERATING ROOM eval as an outpatientobviously we can change this if the bleeding starts again or increases, but seems most appropriate to pursue as an outpatient. Otherwise as above. lovenox DVT proph Subjective Pt is a 53 yo female with a past medical history of depression with suicidal ideation, bipolar disorder, CKD stage 4 secondary to DMT2 on insulin, pituitary tumor s/p resection 1995, hypothyroidism, hx CVA, GERD, chronic back pain, JOE/OHS not on bipap or CPAP at night, and chronic 2L O2 use who [facility] for [facility]. Today, pt states her breathing feels a bit better. She was noted by nursing staff to drop her sats this morning into the 40-50% range but was asymptomatic at the time with no resp distress and was placed on 15 L oxymask for a short time before being weaned down relatively quickly. When seen later this morning she states she feels fair. She does note some chest discomfort where the chest tube is. No questions at this time. Review of Systems Review of Systems: Per HPI. Physical Exam Physical Exam: General: Alert and awake HEENT: Normocephalic, moist oral mucosa, Cardio: Regular rate and rhythm, no murmur, Resp: Improved air movement today compared to yesterday, jimena on the L side after chest tube placement, with some crackles noted MSK: 2+ pitting edema of B/L lower extremities Skin: Warm, pink, dry, no rashes or ulcers noted on visible skin Psych: Mood-affect congruence. Results & Data Results & Data Vital Signs (Past 12 Hours) Vital Signs Temp Pulse Pulse Resp BP Pulse Ox O2 Del Method 09/28/23 05:50 Nasal Cannula 09/28/23 05:42 91 H 09/28/23 02:50 36.8 C 90 19 134/64 92 Nasal Cannula 09/28/23 00:00 88 09/27/23 23:07 36.5 C 90 18 127/58 L 97 Nasal Cannula 09/27/23 20:45 Nasal Cannula 09/27/23 20:00 36.8 C 92 H 22 128/60 95 Nasal Cannula O2 Flow Rate 09/28/23 05:50 2 09/28/23 05:42 09/28/23 02:50 2 09/28/23 00:00 09/27/23 23:07 2 09/27/23 20:45 2 09/27/23 20:00 2 Resident Activity Tracking Resident Involvement: Resident Care Provided Care Provided: Adult Hospital Medicine
--- NOTE | 2023-09-28 07:42 | XRay Report ---
XR chest 1V portable HISTORY: 53 years-old Female Chest tube status post placement of a left-sided pleural catheter COMPARISON: 09/27/2023 TECHNIQUE: AP view of the chest FINDINGS: Right shoulder arthroplasty. Degenerative changes of the left shoulder and spine. Cardiomegaly with p ulmonary vascular congestion and persistent interstitial coarsening. Left-sided pleural catheter is a gain noted projecting over the left lung base. Small persistent left pleural effusion with left midlu ng and left basilar consolidation. No pneumothorax identified. Subacute chronic right-sided rib fract ures again seen. IMPRESSION: 1. Stable positioning of the left basilar pleural catheter. No pneumothorax identified. 2. Cardiomegaly with persistent pulmonary vascular congestion. 3. Left midlung and left basilar consolidation redemonstrated. ACT 112: Negative or not required by law. The above report was generated using voice recognition software. It may contain grammatical, syntax o r spelling errors. Electronically signed by: Mark Acosta M.D. 09/28/2023 7:41 AM
[2023-09-28] MEDS: ALBUT/IPRATROP 3MG/0.5MG NEB 3 ML VIAL NEB STA (08:04)
[2023-09-28] MEDS: ENOXAPARIN INJ 40 MG/0.4 ML SYR SQ SCH (09:00)
--- NOTE | 2023-09-28 09:57 | Pulmonology Progress Note ---
Date of Service September 28, 2023 Assessment & Plan (1) Shortness of breath: (2) Pleural effusion: (3) Infection due to human metapneumovirus (hMPV): Plan IMPRESSION: 53-year-old female with viral bronchiolitis and left-sided effusion status post pigtail catheter placement. Fluid is neutrophilic and exudative with negative cultures. Could be related to an infectious etiology but does not appear consistent with empyema. Other alternatives are also possible. RECOMMENDATIONS: 1. LEFT-sided pleural effusion -neutrophilic exudate. Will transition pigtail catheter to waterseal/gravity and follow output. Will discontinue once output is less than 200 cc/day. Continue to follow daily chest x-ray. 2. Hypoxemia-will provide incentive spirometry and flutter valve. Wean oxygen as tolerated. Out of bed to chair is much as possible. 3. Human metapneumovirus infection -supportive care recommended. Bronchodilators as needed 4. Hypercarbic respiratory failure: Blood gas obtained yesterday did demonstrate hypercarbia. The patient likely has obesity hypoventilation syndrome but it is unlikely that she is going to be compliant with noninvasive positive pressure ventilation or CPAP. Would not try and pursue oxygen saturations much above 88 to 90% given her concomitant hypercarbia. If the patient wished to pursue additional intervention, outpatient PFTs and polysomnography may be appropriate. Thank you for allowing us to participate in the care of this patient. Pulmonary medicine will continue to follow along. Admission and Anticipated Discharge Date Admission Date: September 27, 2023 Subjective Patient seen and examined. EMR reviewed. Discussed with bedside critical care nurse and patient. Patient reports that her breathing is better status post pigtail catheter placement. She did become hypoxemic overnight and had some issues with cough and some sputum production. She is feeling better currently. She is breathing much easier. She has had her oxygen turned up a little bit. Review of Systems 2 Review of Systems: All systems reviewed & are unremarkable except as noted in Subjective Physical Exam 2 Constitutional: + morbidly obese; no acute distress Neck: trachea midline, no thyromegaly Respiratory: no respiratory distress, no labored breathing, no cough and not tachypneic Auscultation: + diminished lung sounds and + rhonchi Chest tube without air leak Cardiovascular: RRR, no murmur, no edema Gastrointestinal (Abdomen): normal bowel sounds, soft, nontender, no hepatosplenomegaly Musculoskeletal: Extremities: extremities normal to inspection Skin: no rashes, warm and dry Neurologic: Nonfocal exam Lymphatic: no cervical lymphadenopathy Results & Data Results & Data Vital Signs (Past 12 Hours) Vital Signs Temp Pulse Pulse Resp BP Pulse Ox O2 Del Method 09/28/23 08:05 97 H 20 96 Nasal Cannula 09/28/23 07:39 94 Oxymask 09/28/23 07:26 94 Oxymask 09/28/23 07:22 50 L Nasal Cannula 09/28/23 07:22 36.9 C 99 H 20 105/58 L 09/28/23 05:50 Nasal Cannula 09/28/23 05:42 91 H 09/28/23 02:50 36.8 C 90 19 134/64 92 Nasal Cannula 09/28/23 00:00 88 09/27/23 23:07 36.5 C 90 18 127/58 L 97 Nasal Cannula O2 Flow Rate 09/28/23 08:05 6 09/28/23 07:39 8 09/28/23 07:26 15 09/28/23 07:22 2 09/28/23 07:22 09/28/23 05:50 2 09/28/23 05:42 09/28/23 02:50 2 09/28/23 00:00 09/27/23 23:07 2 Laboratory Results 09/28/23 04:43 09/28/23 04:43 Pleural fluid studies: Differential: 58% neutrophils, 7% lymphocytes, 1% eosinophils, 34% mesothelial cells pH 7.46 Total protein 4.3 LDH 109 Glucose 184 Gram stain with no organisms seen in a few white blood cells, culture pending AFB stains and cultures pending Cytology pending Diagnostic Findings XR chest 1V : Independently reviewed HISTORY: 53 years-old Female Chest tube status post placement of a left-sided pleural catheter COMPARISON: 09/27/2023 TECHNIQUE: AP view of the chest FINDINGS: Right shoulder arthroplasty. Degenerative changes of the left shoulder and spine. Cardiomegaly with pulmonary vascular congestion and persistent interstitial coarsening. Left-sided pleural catheter is again noted projecting over the left lung base. Small persistent left pleural effusion with left midlung and left basilar consolidation. No pneumothorax identified. Subacute chronic right-sided rib fractures again seen. IMPRESSION: 1. Stable positioning of the left basilar pleural catheter. No pneumothorax identified. 2. Cardiomegaly with persistent pulmonary vascular congestion. 3. Left midlung and left basilar consolidation redemonstrated. PG Care Time/CCT Total # of Minutes Spent Total Time Spent with Patient: Total time spent is greater than 50% in coordination of care (as documented) at patient's floor/unit and/or counseling patient: Coding Level of Care Code 04700 SUB INP/OBS CARE 3/50MIN Diagnoses Shortness of breath R06.02 Pleural effusion J90 Infection due to human metapneumovirus (hMPV) B34.8
[2023-09-28 14:57] LABS: Basophils # (auto) 0.01 K/uL (0.00-0.20); Basophils % (auto) 0.3 %; Eosinophils # (auto) 0.01 K/uL (0.00-0.50); Eosinophils % (auto) 0.3 %; Hematocrit (blood only) 26.9 % (37.0-47.0); Hemoglobin 7.9 g/dl (12.0-16.0); Immature Granulocytes # (auto) 0.04 K/uL (0.01-0.20); Lymphocytes % (auto) 12.7 %; Mean Corpuscular Hemoglobin 25.5 pg (25.0-34.0); Mean Corpuscular Hgb Conc 29.4 g/dL (32.0-36.0); Mean Corpuscular Volume 86.8 fL (80.0-100.0); Mean Platelet Volume 9.1 fL (9.4-12.4); Monocytes # (auto) 0.32 K/uL (0.11-0.59); Monocytes % (auto) 8.1 %; Neutrophils # (auto) 3.07 K/uL (1.40-6.50); Neutrophils % (auto) 77.6 %; Platelet Count 130 K/uL (130-400); RDW Coefficient of Variation 16.9 % (11.5-14.5); RDW Standard Deviation 53.4 fL (36.4-46.3); White Blood Count 3.95 K/ul (4.8-10.8)
[2023-09-28 15:30] LABS: Tear Drop Cells 1+
[2023-09-28] MEDS: LACTATED RINGER'S 1,000 ML IV SCH (18:07)
--- NOTE | 2023-09-28 18:43 | Billing Data ---
Date of Service September 28, 2023 Coding Level of Care Code 79318 SUB INP/OBS CARE MIN
[2023-09-28] MEDS: OPTIRAY 320 100ml IV ONE (20:24)
--- NOTE | 2023-09-28 21:19 | CT Scan Report ---
Exam(s): CT ABDOMEN + PELVIS With Contrast Oral - High Density Amt: Barium , IV Amt: 92 cc opti 320 EXAM: CT Abdomen and Pelvis With Intravenous Contrast CLINICAL HISTORY: Reason for exam: L effusion, vaginal bleeding - ?masses/malignancy?. TECHNIQUE: Axial computed tomography images of the abdomen and pelvis with intravenous contrast. CTDI is 28.14 mGy and DLP is 1387.82 mGy-cm. Automated exposure control was utilized for the study. A dose lowering technique was utilized adhering to the principles of ALARA. CONTRAST: Patient received Barium of Oral - High Density and 92 cc opti 320 of IV contrast COMPARISON: No relevant prior studies available. FINDINGS: Lung bases: See below. ABDOMEN: Liver: Unremarkable. No mass. Gallbladder and bile ducts: Postoperative changes prior cholecystectomy. No ductal dilation. Pancreas: Unremarkable. No mass. No ductal dilation. Spleen: Unremarkable. No splenomegaly. Adrenals: Unremarkable. No mass. Kidneys and ureters: Unremarkable. No solid mass. No hydronephrosis. Stomach and bowel: Unremarkable. No obstruction. No mucosal thickening. PELVIS: Appendix: No findings to suggest acute appendicitis. Bladder: Urinary bladder is moderately distended. Reproductive: Uterus is surgically absent. ABDOMEN and PELVIS: Intraperitoneal space: Unremarkable. No free air. No significant fluid collection. Bones/joints: No acute fracture. No dislocation. Soft tissues: Mild diffuse anasarca. Vasculature: Unremarkable. No abdominal aortic aneurysm. Lymph nodes: Unremarkable. No enlarged lymph nodes. Tubes, lines and devices: Left sided chest tube. Small left and trace right pleural effusion. Compressive atelectasis of both lower lobes. No pneumothorax. IMPRESSION: No acute findings in the abdomen or pelvis. Bilateral pleural effusions left greater than right with left-sided chest tube present. Electronically signed by: Omar Cano MD 09/28/23 21:18 PM
[2023-09-29] MEDS: ALBUT/IPRATROP 3MG/0.5MG NEB 3 ML VIAL NEB PRN (04:18)
--- NOTE | 2023-09-29 07:53 | Pulmonology Progress Note ---
Date of Service September 29, 2023 Assessment & Plan (1) Shortness of breath: (2) Pleural effusion: (3) Infection due to human metapneumovirus (hMPV): Plan IMPRESSION: 53-year-old female with viral bronchiolitis and left-sided effusion status post pigtail catheter placement. Fluid is neutrophilic and exudative with negative cultures. Could be related to an infectious etiology but does not appear consistent with empyema. Other alternatives are also possible. RECOMMENDATIONS: 1. LEFT-sided pleural effusion - Neutrophilic exudate. Pigtail catheter has been at [facility]. She had put out 310 mL for the last 24 hours, however she did significantly decreased output overnight. We will repeat chest x-ray this morning and continue with waterseal at this point. Consideration for trial of clamping chest tube later in the day versus early tomorrow with eventual hope of removing catheter. Would be hesitant to remove catheter prematurely given patient's body habitus which presents difficulty with repeated procedures. Will discontinue pigtail once output is less than 200 cc/day. 2. Hypoxemia -continue to encourage pulmonary toileting with incentive spirometry and flutter valve's. Encourage out of bed to chair is much as possible. Titrate down oxygen to goal saturation of 88 to 90%. 3. Human metapneumovirus infection - Supportive care recommended. Bronchodilators as needed 4. Hypercarbic respiratory failure - Prior blood gas demonstrate hypercarbia. The patient likely has obesity hypoventilation syndrome but it is unlikely that she is going to be compliant with noninvasive positive pressure ventilation or CPAP. Would not try and pursue oxygen saturations much above 88 to 90% given her concomitant hypercarbia. If the patient wished to pursue additional intervention, outpatient PFTs and polysomnography may be appropriate. Thank you for allowing us to participate in the care of this patient. Pulmonary medicine will continue to follow along. Admission and Anticipated Discharge Date Admission Date: September 27, 2023 Subjective Patient seen and evaluated at bedside this morning. She reports that she is breathing much easier. She offers no complaints of pain and states that she is able to take and nice deep breaths without issue. She feels much better than the time of admission. She offers no complaints of chest pain, palpitations, pleuritic pain, productive cough, or hemoptysis. Review of Systems Review of Systems: A complete 10 point review of systems was reviewed with the patient with pertinent positives and negatives as per history of present illness. All else were negative. Physical Exam Physical Exam: VITAL SIGNS - Vital signs and nursing notes were reviewed. GENERAL - 53-year-old female appearing older than her stated age who is in no acute distress. LUNGS - LEFT sided chest tube site clean, dry, and intact. Auscultation reveals diminished breath sounds on the LEFT. CARDIAC - RRR with S1/S2. No murmur, rubs, or gallops appreciated. PSYCH - A&Ox3 and cooperates fully with examiner. Pt is very pleasant and interacts well with examiner. Results & Data Results & Data Vital Signs (Past 12 Hours) Vital Signs Temp Pulse Pulse Resp BP Pulse Ox O2 Del Method 09/29/23 07:44 37.8 C H 90 20 113/65 96 Nasal Cannula 09/29/23 07:15 94 H 09/29/23 04:50 37.6 C H 09/29/23 04:50 High Flow Nasal Cannula 09/29/23 04:20 90 22 90 Nasal Cannula 09/29/23 03:39 38.8 C H 94 H 20 131/73 96 Nasal Cannula 09/28/23 23:39 94 H 09/28/23 23:16 37.9 C H 97 H 32 H 147/75 H 95 Nasal Cannula O2 Flow Rate 09/29/23 07:44 6 09/29/23 07:15 09/29/23 04:50 09/29/23 04:50 3 09/29/23 04:20 3 09/29/23 03:39 6 09/28/23 23:39 09/28/23 23:16 6 PG Care Time/CCT Total # of Minutes Spent Total Time Spent with Patient: Total time spent is greater than 50% in coordination of care (as documented) at patient's floor/unit and/or counseling patient: Coding Level of Care Code 10127 SUB INP/OBS CARE 2/35MIN Diagnoses Shortness of breath R06.02 Pleural effusion J90 Infection due to human metapneumovirus (hMPV) B34.8
[2023-09-29 08:10] LABS: Eosinophils # (auto) 0.01 K/uL (0.00-0.50); Eosinophils % (auto) 0.3 %; Hematocrit (blood only) 26.7 % (37.0-47.0); Hemoglobin 7.9 g/dl (12.0-16.0); Immature Granulocytes # (auto) 0.02 K/uL (0.01-0.20); Immature Granulocytes % (auto) 0.5 %; Lymphocytes # (auto) 0.46 K/uL (1.20-3.40); Lymphocytes % (auto) 12.2 %; Mean Corpuscular Hemoglobin 25.6 pg (25.0-34.0); Mean Corpuscular Hgb Conc 29.6 g/dL (32.0-36.0); Mean Corpuscular Volume 86.7 fL (80.0-100.0); Mean Platelet Volume 9.4 fL (9.4-12.4); Monocytes # (auto) 0.32 K/uL (0.11-0.59); Monocytes % (auto) 8.5 %; Neutrophils # (auto) 2.96 K/uL (1.40-6.50); Neutrophils % (auto) 78.5 %; Platelet Count 131 K/uL (130-400); RDW Coefficient of Variation 17.1 % (11.5-14.5); RDW Standard Deviation 54.5 fL (36.4-46.3); Red Blood Count 3.08 M/uL (4.20-5.40); White Blood Count 3.77 K/ul (4.8-10.8)
[2023-09-29 08:27] LABS: BUN Creatinine Ratio 15.1 (10-20); Calcium 8.2 mg/dl (8.6-10.3); Creatinine Clr Calc Pharmacy 39.9 ml/min; Est GFR (African American) 38.1 ml/min; Est GFR (Non-African American) 32.9 ml/min; Potassium 4.6 mmol/L (3.5-5.1)
--- NOTE | 2023-09-29 08:34 | XRay Report ---
XR chest 1V portable HISTORY: Pleural effusion. Follow-up. COMPARISON: Chest 09/28/2023. FINDINGS: No pneumothorax. The heart remains enlarged. Pulmonary vasculature congestion and left mid to lower lung zone airspace opacities persist. Left basilar chest tube is unchanged in position. Trac e right and small left pleural effusions again noted. IMPRESSION: 1. Left basilar chest tube is unchanged in position. No pneumothorax. 2. Trace right and small left pleural effusions persist. 3. Cardiomegaly and pulmonary vascular congestion again noted. 4. Left mid to lower lung zone airspace opacities persist. ACT 112: Negative or not required by law. Electronically signed by: Arnulfo Weems M.D. 09/29/2023 8:33 AM
[2023-09-29 08:42] LABS: RBC Morphology Unremarkable
--- NOTE | 2023-09-29 09:55 | Hospitalist Progress Note ---
Date of Service September 29, 2023 Assessment & Plan (1) Acute hypoxic respiratory failure: (2) Infection due to human metapneumovirus (hMPV): (3) Depression: (4) Depression with suicidal ideation: (5) Pleural effusion: (6) Bipolar disorder: (7) CKD (chronic kidney disease) stage 4, GFR 15-29 ml/min: (8) Diabetes mellitus, type 2: (9) GERD (gastroesophageal reflux disease): Plan Pt is a 53 yo female with a past medical history of depression with suicidal ideation, bipolar disorder, CKD stage 4 secondary to DMT2 on insulin, pituitary tumor s/p resection 1995, hypothyroidism, hx CVA, GERD, chronic back pain, JOE/OHS not on bipap or CPAP at night, and chronic 2L O2 use who [facility] the [facility] for respiratory distress. #Acute hypoxic resp failure, improved #Large L pleural effusion, improved s/p chest tube - CXR and chest CT note large L pleural effusion - biofire + for metapneumovirus - CHF vs pneumonia vs other underlying etiology - bnp 167 on admission, echo 09/26; EF 60-65%, no wall abnorm noted but study limited - continue O2 via NC as needed, continue duoneb - pulm consulted; chest tube placed 09/26, continue today #Fever - suspect this may be secondary to her UTI vs atelectasis vs secondary bacterial pneumonia (less likely given normal procal) - UA with culture done 09/22; grew proteus - blood cx 09/26 negative at 48 hrs - she did endorse some dysuria - started on IV CTX #Metapneumovirus + - procal 0.08, so URI symptoms most likely viral in nature - continue supportive care #Intertrigo - can use nystatin for skin irritation prn #Vaginal bleeding, postmenopausal - last mosquito sprayer appt August 2021 with concern of malignancy - CT scan done 09/27 with radiology noting absent uterus? #CKD stage 4 - last nephro note in our system was 11/2020 - most likely secondary to her DMT2 - baseline Cr around 1.5 or so - Cr on admission 1.63 #DMT2 on insulin - will hold home trulicity - insulin glarg 12 units BID - novolog CF 25, carb ratio 15 #Hypothyroidism - most recent TSH 09/2023 was 2.3 - continue home levothyroxine #GERD - continue home pantoprazole and famotidine #Depression #Bipolar disorder - continue home aripiprazole - continue home Thorazine - continue home bupropion - continue home paroxetine - note that Thorazine may interact with Abilify and bupropion and cause QT prolongation but could have withdrawal symptoms if stopped so will continue for now #CAD - continue home rosuvastatin #Chronic back pain #Diabetic neuropathy - continue home gabapentin DVT ppx: Lovenox qam started 09/27 Admission and Anticipated Discharge Date Admission Date: September 27, 2023 Supervising Physician Co-Signing Physician Notes I personally examined the patient and verified all dougherty points of history and exam, discussed case, and agree with decision making with Dr Hedrick breathing feels good. belly hurts some. denies vaginal bleeding. notes never had hysterectomy. had some dysuria. vitals noted nad breathing unlabored no accessory muscle use good effort. Skin without rashes pallor or icterus. Neuro without focal deficits massive effusion -parapneumonic versus other. seems most c/w parapneumonic. fever - UTI, atelectasis, ?both. abx. vaginal bleeding - noted by PCP, none currently. CT noted post hysterectomy but pt/PCP/prior mosquito sprayer notes don't note this. bleeding not currently an emergency - will have outpt mosquito sprayer f/u. constipa tion/abdominal pain - bowel regimen. lovenox DVT proph Subjective Pt is a 53 yo female with a past medical history of depression with suicidal michelle ation, bipolar disorder, CKD stage 4 secondary to DMT2 on insulin, pituitary tumor s/p resection 1995, hypothyroidism, hx CVA, GERD, chronic back pain, JOE/OHS not on bipap or CPAP at night, and chronic 2L O2 use who [facility] for respiratory distress. Today, pt reports that she is doing okay and that her breathing is much better. However, she endorses worsening, diffuse abdominal pain and tenderness. Pt notes that she has not had a bowel movement in one week. She denies hemoptysis, nausea, vomiting, hematochezia, melena, diarrhea, pain or burning w ith urination. Otherwise, she reports no new symptoms. Review of Systems Review of Systems: Per HPI. Physical Exam Physical Exam: General: Alert and awake HEENT: Normocephalic, moist oral mucosa, Cardio: Regular rate and rhythm, no murmur, Resp: Overall poor air movement appreciated with some crackles GI: diffuse abdominal tenderness, some distention, hypoactive bowel sounds MSK: 2+ pitting edema of B/L lower extremities Skin: Warm, pink, dry, Psych: Mood-affect congruence. Results & Data Results & Data Vital Signs (Past 12 Hours) Vital Signs Temp Pulse Pulse Resp BP Pulse Ox O2 Del Method 09/29/23 07:44 37.8 C H 90 20 113/65 96 Nasal Cannula 09/29/23 07:15 94 H 09/29/23 04:50 37.6 C H 09/29/23 04:50 High Flow Nasal Cannula 09/29/23 04:20 90 22 90 Nasal Cannula 09/29/23 03:39 38.8 C H 94 H 20 131/73 96 Nasal Cannula 09/28/23 23:39 94 H 09/28/23 23:16 37.9 C H 97 H 32 H 147/75 H 95 Nasal Cannula O2 Flow Rate 09/29/23 07:44 6 09/29/23 07:15 09/29/23 04:50 09/29/23 04:50 3 09/29/23 04:20 3 09/29/23 03:39 6 09/28/23 23:39 09/28/23 23:16 6 Resident Activity Tracking Resident Involvement: Resident Care Provided Care Provided: Adult Hospital Medicine
[2023-09-29] MEDS: cefTRIAXone SODIUM 2,000 MG in DEXTROSE 5 % MINI-B 50 ML IV SCH (10:48)
[2023-09-29] MEDS: MAGNESIUM HYDROXIDE SUSP 30 ML UDC PO SCH (10:48)
--- NOTE | 2023-09-29 10:55 | XRay Report ---
XR KUB/Abdomen 1 view CLINICAL HISTORY: Diffuse abd pain TECHNIQUE: 1 view of the abdomen was obtained. Comparison: Comparison is made to chest radiograph 07/03/2014 FINDINGS: Lung bases are unremarkable. The osseous structures are grossly unremarkable. The bowel gas pattern i s nonobstructive. A moderate amount of stool is noted within the large bowel. IMPRESSION: Nonobstructive bowel gas pattern. ACT 112: Negative or not required by law. Electronically signed by: Jed Garzon M.D. 09/29/2023 10:54 AM
[2023-09-29] MEDS: CARBOHYDRATES FOR HYPOGLYCEMIA PO PRN (11:16)
--- NOTE | 2023-09-29 15:01 | Procedure Note ---
Procedure Note Date of Service September 29, 2023 Note Procedure: Discontinuation of 14 Wol[place] pigtail catheter Indication: Minimal drainage. CT scan with minimal fluid Consent discussed with patient. Anesthesia none Sheep Sorter Dr. Ospina Procedure: The dressing was taken down. The skater fixation system was removed. There was a small skin blister associated with the adhesive. The locking mechanism was released. Under expiration the catheter was rapidly pulled. An occlusive dressing was applied. The catheter was intact. She tolerated the procedure well. Pulmonary will sign off at this point in time. Feel free to contact us with additional questions or concerns Coding CPT Codes Pulmonary/Thoracic - Pulmonary and Thoracic: 53761 Remove lung catheter ([id number]) [facility] [place] Procedure Codes (Charges) Pulmonary/Thoracic Procedure 1: Pulmonary and Thoracic: 47843 Remove lung catheter
--- NOTE | 2023-09-29 16:25 | Billing Data ---
Date of Service September 29, 2023 Coding Level of Care Code 70597 SUB INP/OBS CARE MIN
[2023-09-29] MEDS: LANTUS PER UNIT CHARGE SQ SCH (20:24)
[2023-09-29] MEDS ORDERED: LANTUS PER UNIT CHARGE SQ SCH (21:00)
--- NOTE | 2023-09-30 05:18 | Electrocardiogram Report ---
Test Reason : Blood Pressure : / mmHG Vent. Rate : 112 BPM Atrial Rate : 112 BPM P-R Int : 196 ms QRS Dur : 076 ms QT Int : 306 ms P-R-T Axes : 045 -41 068 degrees QTc Int : 417 ms Sinus tachycardia Left axis deviation Low voltage QRS Possible Anterolateral infarct , age undetermined Nonspecific T wave abnormality Abnormal ECG When compared with ECG of 25-MAY-2021 14:19, [place] interval has decreased Confirmed by Andrea Hauser ([id number]) on 09/30/2023 5:18:01 AM Referred By: [facility] [place] Confirmed By:Andrea Hauser
[2023-09-30 07:08] LABS: Basophils # (auto) 0.01 K/uL (0.00-0.20); Basophils % (auto) 0.3 %; Eosinophils # (auto) 0.05 K/uL (0.00-0.50); Eosinophils % (auto) 1.3 %; Hematocrit (blood only) 26.2 % (37.0-47.0); Hemoglobin 7.9 g/dl (12.0-16.0); Immature Granulocytes # (auto) 0.01 K/uL (0.01-0.20); Immature Granulocytes % (auto) 0.3 %; Lymphocytes # (auto) 0.42 K/uL (1.20-3.40); Lymphocytes % (auto) 10.6 %; Mean Corpuscular Hemoglobin 25.2 pg (25.0-34.0); Mean Corpuscular Hgb Conc 30.2 g/dL (32.0-36.0); Mean Corpuscular Volume 83.7 fL (80.0-100.0); Mean Platelet Volume 9.3 fL (9.4-12.4); Monocytes # (auto) 0.18 K/uL (0.11-0.59); Monocytes % (auto) 4.5 %; Platelet Count 139 K/uL (130-400); RDW Coefficient of Variation 16.9 % (11.5-14.5); RDW Standard Deviation 51.8 fL (36.4-46.3); Red Blood Count 3.13 M/uL (4.20-5.40); White Blood Count 3.97 K/ul (4.8-10.8)
[2023-09-30 07:21] LABS: Calcium 8.3 mg/dl (8.6-10.3); Creatinine Clr Calc Pharmacy 39.6 ml/min; Est GFR (African American) 37.6 ml/min; Est GFR (Non-African American) 32.4 ml/min; Potassium 5.2 mmol/L (3.5-5.1)
[2023-09-30 08:24] LABS: Tear Drop Cells 1+
[2023-09-30] MEDS: LANTUS PER UNIT CHARGE SQ SCH (08:53)
[2023-09-30] MEDS: NYSTATIN POWDER 15GM BTL EXT PRN (08:55)
--- NOTE | 2023-09-30 10:45 | Hospitalist Progress Note ---
Date of Service September 30, 2023 Assessment & Plan (1) Acute hypoxic respiratory failure: (2) Infection due to human metapneumovirus (hMPV): (3) Depression: (4) Depression with suicidal ideation: (5) Pleural effusion: (6) Bipolar disorder: (7) CKD (chronic kidney disease) stage 4, GFR 15-29 ml/min: (8) Diabetes mellitus, type 2: (9) GERD (gastroesophageal reflux disease): Plan Pt is a 53 yo female with a past medical history of depression with suicidal ideation, bipolar disorder, CKD stage 4 secondary to DMT2 on insulin, pituitary tumor s/p resection 1995, hypothyroidism, hx CVA, GERD, chronic back pain, JOE/OHS not on bipap or CPAP at night, and chronic 2L O2 use who [facility]. #Acute hypoxic resp failure, improved #Large L pleural effusion, improved s/p chest tube - CXR and chest CT note large L pleural effusion - biofire + for metapneumovirus - CHF vs pneumonia vs other underlying etiology - bnp 167 on admission, echo 09/26; EF 60-65%, no wall abnorm noted but study limited - continue O2 via NC as needed, continue duoneb - pulm consulted; chest tube placed 09/26, removed 09/28 #Fever - suspect this may be secondary to her UTI vs atelectasis vs secondary bacterial pneumonia (less likely given normal procal) - UA with culture done 09/22; grew proteus - blood cx 09/26 negative at 48 hrs - she did endorse some dysuria - started on IV CTX 09/28, continue today #Delirium, hospital acquired - noted to have some delirium, seeing dogs outside her window last night - no visual hallucinations this morning - will likely take weeks to a few months to totally resolve #Metapneumovirus + - procal 0.08, so URI symptoms most likely viral in nature - continue supportive care #Intertrigo - can use nystatin for skin irritation prn #Vaginal bleeding, postmenopausal - 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 #CKD stage 4 - last nephro note in our system was 11/2020 - most likely secondary to her DMT2 - baseline Cr around 1.5 or so - Cr on admission 1.63 #DMT2 on insulin - will hold home trulicity - insulin glarg held due to hypoglycemia or euglycemic values the last 24 hours - novolog CF 25, carb ratio 15 per protocol #Hypothyroidism - most recent TSH 09/2023 was 2.3 - continue home levothyroxine #GERD - continue home pantoprazole and famotidine #Depression #Bipolar disorder - continue home aripiprazole - continue home Thorazine - continue home bupropion - continue home paroxetine - note that Thorazine may interact with Abilify and bupropion and cause QT prolongation but could have withdrawal symptoms if stopped so will continue for now #CAD - continue home rosuvastatin #Chronic back pain #Diabetic neuropathy - continue home gabapentin DVT ppx: Lovenox qam started 09/27 Admission and Anticipated Discharge Date Admission Date: September 27, 2023 Supervising Physician Co-Signing Physician Notes I personally examined the patient and verified all dougherty points of history and exam, discussed case, and agree with decision making with Dr Hedrick no new complaints. on the phone when i see her and continues her conversation. vitals noted nad breathing unlabored no accessory muscle use good effort. no rales or wheezes faint rhonchi good effort. Skin without rashes pallor or icterus. Neuro without focal deficits massive effusion -parapneumonic versus other. seems most c/w parapneumonic. slowly improving continue supportive care. fever - UTI, atelectasis, ?both. abx. vaginal bleeding - noted by PCP, none currently. CT noted post hysterectomy but pt/PCP/prior printed circuit board panels plater notes don't note this. bleeding not currently an emergency - will have outpt printed circuit board panels plater f/u. constipation/abdominal pain - bowel regimen. lovenox DVT proph continue supportive care, ongoing hospital care Subjective Pt is a 53 yo female with a past medical history of depression with suicidal ideation, bipolar disorder, CKD stage 4 secondary to DMT2 on insulin, pituitary tumor s/p resection 1995, hypothyroidism, hx CVA, GERD, chronic back pain, JOE/OHS not on bipap or CPAP at night, and chronic 2L O2 use who [facility]. Today, pt states that her abdominal pain feels a bit better today and she is having bowel movements. She states she does not have much of a appetite, but is not nauseated, just not feeling hungry. She notes seeing a lady outside in the construction area last night with her two small dogs. She states today she has not seen them. She states her breathing feels a bit better today compared to previous days. Review of Systems Review of Systems: Per HPI. Physical Exam Physical Exam: General: Alert and awake HEENT: Normocephalic, moist oral mucosa, Cardio: Regular rate and rhythm, no murmur, Resp: Overall poor air movement appreciated with some crackles that were somewhat worse than yesterday GI: diffuse abdominal tenderness, some distention, hypoactive bowel sounds MSK: 2+ pitting edema of B/L lower extremities Skin: Warm, pink, dry, Psych: Mood-affect congruence. Results & Data Results & Data Vital Signs (Past 12 Hours) Vital Signs Temp Pulse Pulse Resp BP Pulse Ox O2 Del Method 09/30/23 08:16 Nasal Cannula 09/30/23 08:16 85 09/30/23 06:55 37.6 C H 91 H 20 131/68 96 High Flow Nasal Cannula 09/30/23 02:35 36.6 C 80 18 127/64 96 High Flow Nasal Cannula 09/29/23 23:36 78 O2 Flow Rate 09/30/23 08:16 7 09/30/23 08:16 09/30/23 06:55 6 09/30/23 02:35 09/29/23 23:36 Resident Activity Tracking Resident Involvement: Resident Care Provided Care Provided: Adult Hospital Medicine
--- NOTE | 2023-09-30 17:10 | Billing Data ---
Date of Service September 30, 2023 Coding Level of Care Code 04142 SUB INP/OBS CARE MIN
[2023-09-30 21:06] LABS: Appearance Urine Cloudy (Clear); Bacteria Urine Automated None Seen (None Seen); Bilirubin Urine Negative (Negative); Blood Urine 3+ (Negative); Color Urine Yellow; Glucose Urine UA Negative (Negative); Ketones Urine Trace (Negative); Leukocyte Esterase Urine Negative (Negative); Nitrite Urine Negative (Negative); Protein Urine 2+ (Negative); RBC Urine Automated >20 /hpf (0-2); Specific Gravity Urine 1.021 (1.000-1.030); Urobilinogen Urine Negative (Negative); WBC Urine Automated 0-5 /hpf (0-5)
[2023-10-01 06:58] LABS: Eosinophils # (auto) 0.01 K/uL (0.00-0.50); Eosinophils % (auto) 0.3 %; Hematocrit (blood only) 26.4 % (37.0-47.0); Hemoglobin 7.9 g/dl (12.0-16.0); Immature Granulocytes # (auto) 0.03 K/uL (0.01-0.20); Immature Granulocytes % (auto) 0.9 %; Lymphocytes # (auto) 0.55 K/uL (1.20-3.40); Lymphocytes % (auto) 16.5 %; Mean Corpuscular Hemoglobin 25.2 pg (25.0-34.0); Mean Corpuscular Hgb Conc 29.9 g/dL (32.0-36.0); Mean Corpuscular Volume 84.3 fL (80.0-100.0); Mean Platelet Volume 9.2 fL (9.4-12.4); Monocytes # (auto) 0.13 K/uL (0.11-0.59); Monocytes % (auto) 3.9 %; Neutrophils # (auto) 2.61 K/uL (1.40-6.50); Neutrophils % (auto) 78.4 %; Platelet Count 131 K/uL (130-400); RDW Coefficient of Variation 17.2 % (11.5-14.5); RDW Standard Deviation 53.1 fL (36.4-46.3); Red Blood Count 3.13 M/uL (4.20-5.40); White Blood Count 3.33 K/ul (4.8-10.8)
[2023-10-01 07:12] LABS: BUN Creatinine Ratio 17.8 (10-20); Calcium 8.3 mg/dl (8.6-10.3); Creatinine Clr Calc Pharmacy 37.5 ml/min; Est GFR (African American) 36.1 ml/min; Est GFR (Non-African American) 31.1 ml/min; Potassium 5.2 mmol/L (3.5-5.1)
[2023-10-01 07:44] LABS: Polychromasia 1+
--- NOTE | 2023-10-01 07:51 | XRay Report ---
XR chest 1V portable HISTORY: 53 years-old Female Worsening resp sounds, prior large L eff acute shortness of breath COMPARISON: 09/29/2023 TECHNIQUE: AP view of the chest FINDINGS: Status post removal of the left-sided chest tube. Cardiac silhouette is enlarged. Pulmonary vascular congestion with interstitial coarsening. Left greater than right pleural effusions with bibasilar and left midlung consolidation again noted. Chronic rib fractures. Right shoulder arthroplasty. IMPRESSION: 1. Status post removal of the left-sided chest tube. 2. No pneumothorax identified. 3. Cardiomegaly with unchanged pulmonary edema. 4. Stable pleural effusions with bibasilar and left midlung consolidation. ACT 112: Negative or not required by law. The above report was generated using voice recognition software. It may contain grammatical, syntax o r spelling errors. Electronically signed by: Mark Acosta M.D. 10/01/2023 7:50 AM
[2023-10-01 08:40] LABS: C Reactive Protein 22.7 mg/dl (0-0.5)
--- NOTE | 2023-10-01 09:40 | Hospitalist Progress Note ---
Date of Service October 01, 2023 Assessment & Plan (1) Acute hypoxic respiratory failure: (2) Infection due to human metapneumovirus (hMPV): (3) Depression: (4) Depression with suicidal ideation: (5) Pleural effusion: (6) Bipolar disorder: (7) CKD (chronic kidney disease) stage 4, GFR 15-29 ml/min: (8) Diabetes mellitus, type 2: (9) GERD (gastroesophageal reflux disease): Plan Pt is a 53 yo female with a past medical history of depression with suicidal ideation, bipolar disorder, CKD stage 4 secondary to DMT2 on insulin, pituitary tumor s/p resection 1995, hypothyroidism, hx CVA, GERD, chronic back pain, JOE/OHS not on bipap or CPAP at night, and chronic 2L O2 use who [facility] for [facility] distress. #Acute hypoxic resp failure #Large L pleural effusion, improved s/p chest tube - CXR and chest CT note large L pleural effusion - biofire + for metapneumovirus - CHF vs pneumonia vs other underlying etiology - bnp 167 on admission, echo 09/26; EF 60-65%, no wall abnorm noted but study limited -Worsening shortness of breath/respiratory symptoms this morning with slight worsening lung crackles on exam -Patient currently with nasal cannula at 5 lpm and O2 sat between 88-90s -Chest x-ray ordered for this morning given episodes of fevers, and to my interpretation seems to be worse with regards to pleural effusions compared to yesterday scans Will order chest CT wo contrast to characterize this new change (worsening effusion versus pneumonia) If CT findings consistent with pneumonia or if indeterminate, will change antibiotics to Cefepime/Doxycycline for better coverage - continue O2 via NC as needed, continue duoneb - pulm consulted - chest tube placed 09/26, removed 09/28 #Fever - suspect this may be secondary to her UTI vs atelectasis vs secondary bacterial pneumonia - UA with culture done 09/22; grew proteus - blood cx 09/26 negative at 48 hrs -Given episodes of fevers, CRP and Pro-Juan repeated CRP elevated from 13.95-22.7 Pro-Juan remains normal at 0.38, but penumonia cannot be fully r/o due to increased CRP and fevers despite IV Rocephin -Repeat blood cultures and urine cultures ordered -Continue IV Rocephin for now, but may change depending on culture results and on CT findings as detailed above #Delirium, hospital acquired -Appears to be more oriented this morning but still slightly confused - will likely take weeks to a few months to totally resolve #Metapneumovirus + - URI symptoms most likely viral in nature - continue supportive care #Intertrigo - can use nystatin for skin irritation prn #Vaginal bleeding, postmenopausal - 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 #CKD stage 4 - last nephro note in our system was 11/2020 - most likely secondary to her DMT2 - baseline Cr around 1.5 or so - Cr on admission 1.63 -Today creatinine of 1.80 -Continue to encourage p.o. hydration monitoring a.m. labs #DMT2 on insulin - will hold home trulicity - insulin glarg held due to hypoglycemia or euglycemic values the last 24 hours - novolog CF 25, carb ratio 15 per protocol #Hypothyroidism - most recent TSH 09/2023 was 2.3 - continue home levothyroxine #GERD - continue home pantoprazole and famotidine #Depression #Bipolar disorder - continue home aripiprazole - continue home Thorazine - continue home bupropion - continue home paroxetine - note that Thorazine may interact with Abilify and bupropion and cause QT prolongation but could have withdrawal symptoms if stopped so will continue for now #CAD - continue home rosuvastatin #Chronic back pain #Diabetic neuropathy - continue home gabapentin DVT ppx: Lovenox qam started 09/27 Admission and Anticipated Discharge Date Admission Date: September 27, 2023 Supervising Physician Co-Signing Physician Notes I personally examined the patient and verified all dougherty points of history and exam, discussed case, and agree with decision making with Dr Macias feeling worse breathing worse R sided chest pain feels like kicked in the rib. sister present updated to the best of my ability and to her satisfaction vitals noted fatigued, mildly diaphoretic, appearing uncomfortable. lungs coarse rhonchi throughout, mildly tachypnic. CT chest (films and report) reviewed, labs reviewed - most notably CRP noted. fever/worsening respiratory distress - after CT and CRP - appears most c/w newly developing pneumonia - was on ceftriaxone//is in hospital so will broaden abx to cefepime and doxy (despite neg MRSA nares given development after several days of hospitalization). pleuritic pain noted - d/w pt and sister -- will be a ltitle difficult to control given her noting that tylenol not helping much (will schedule for more proactive approach) and impaired renal fxn limiting ability to use NSAID (will give toradol 10mg q12 prn and follow Cr jimena since NSAID likely to help the most and it's not clear how much of her respiratory distress is due to hypoxia and how much is due to pain) and limited ability to use narcotics (given poor respiratory status - will give morphine 2mg q4 prn and follow); lidocaine patch. titrate O2 as possible. poor PO intake//elevation of Cr within baseline range - gentle IV fluids massive effusion -parapneumonic versus other. seems most c/w parapneumonic. no further management needed at this time UTI - abx hysterectomy but pt/PCP/prior table games supervisor notes don't note this. bleeding not currently an emergency - will have outpt table games supervisor f/u. constipation/abdominal pain - bowel regimen. lovenox DVT proph continue supportive care, ongoing hospital care Subjective Pt is a 53 yo female with a past medical history of depression with suicidal ideation, bipolar disorder, CKD stage 4 secondary to DMT2 on insulin, pituitary tumor s/p resection 1995, hypothyroidism, hx CVA, GERD, chronic back pain, JOE/OHS not on bipap or CPAP at night, and chronic 2L O2 use who [facility] for respiratory distress. Patient seen today at bedside and she refers episode of shortness of breath earlier this morning that improved with DuoNeb therapy. She states that this last episode of shortness of breath has been worse compared to yesterday. Also refers having dry cough, runny nose, and feeling feverish. States that she has some pain/discomfort in her right lower quadrant that has had difficulties with bowel movements. Denies having chills, weakness, malaise, chest pain, palpitations, tachycardia, or any other symptom Review of Systems Review of Systems: Per HPI. Physical Exam Physical Exam: General: Alert and awake HEENT: Normocephalic, moist oral mucosa, Cardio: Regular rate and rhythm, no murmur, Resp: Overall poor air movement appreciated with crackles in bilateral lung bases and extending to mid-lung ahuja GI: diffuse abdominal tenderness, some distention, hypoactive bowel sounds MSK: 1+ pitting edema of B/L lower extremities Skin: Warm, pink, dry, Psych: Mood-affect congruence. Results & Data Results & Data Vital Signs (Past 12 Hours) Vital Signs Temp Pulse Pulse Resp BP BP Pulse Ox 10/01/23 08:15 36.6 C 106 H 30 H 125/67 90 10/01/23 07:02 99 H 28 H 88 L 10/01/23 02:38 37.0 C 87 16 122/67 92 09/30/23 23:00 93 H 09/30/23 22:32 37.2 C 93 H 20 131/65 94 O2 Del Method O2 Flow Rate 10/01/23 08:15 Nasal Cannula 10/01/23 07:02 Nasal Cannula 5 10/01/23 02:38 Nasal Cannula 09/30/23 23:00 09/30/23 22:32 Nasal Cannula Resident Activity Tracking Resident Involvement: Resident Care Provided Care Provided: Adult Hospital Medicine
--- NOTE | 2023-10-01 10:45 | XRay Report ---
XR chest 1V portable HISTORY: 53 years-old Female hypoxia, fever acute hypoxia COMPARISON: 09/30/2023 TECHNIQUE: AP view of the chest FINDINGS: Cardiac silhouette is enlarged. Pulmonary vascular congestion with interstitial coarsening. Left grea ter than right pleural effusions with bibasilar and left midlung consolidation again noted. Chronic r ib fractures. Right shoulder arthroplasty. IMPRESSION: 1. Cardiomegaly with unchanged pulmonary edema. 2. Stable pleural effusions with bibasilar and left midlung consolidation. ACT 112: Negative or not required by law. The above report was generated using voice recognition software. It may contain grammatical, syntax o r spelling errors. Electronically signed by: Mark Acosta M.D. 10/01/2023 10:44 AM
--- NOTE | 2023-10-01 14:25 | CT Scan Report ---
CT chest diagnostic wo con CT DOSE: 1046.83 mGy.cm CLINICAL HISTORY: 53 years-old Female with worsening SOB. Acute shortness of breath TECHNIQUE: Multiaxial CT images of the chest were performed without contrast. A dose lowering techni que was utilized adhering to the principles of ALARA. COMPARISON: Chest radiograph of same day, chest CT 09/27/2023 FINDINGS: Unremarkable thyroid. Persistent mediastinal and hilar lymphadenopathy which is likely reac tive. Paratracheal lymph nodes measure up to 1.3 cm. Cardiomegaly with small pericardial effusion. No thoracic aortic aneurysm. Small right pleural effusion has increased in size from prior. Moderate left pleural effusion is mild ly decreased in size. No pneumothorax. Pulmonary vascular congestion with interstitial coarsening. Pa tchy bilateral groundglass and consolidative opacities have progressively worsened compared to the pr ior study. There is volume loss with consolidation of the left lung. Bibasilar air bronchograms. Resp iratory motion artifact limits the study. No acute upper abdominal abnormality. Generalized body wall edema. Healing right glenoid and rib frac tures. Unchanged subluxation versus dislocation of the right glenohumeral joint. IMPRESSION: 1. Cardiomegaly with pulmonary edema, and unchanged pericardial effusion. Increased size of a small r ight pleural effusion with decreased size of a moderate left pleural effusion. 2. Multifocal pneumonia has progressively worsened from prior. 3. Left lung volume loss with dependent predominant bibasilar consolidation and air bronchograms. The re is improved aeration of the left lung compared to the 09/27/2023 exam. 4. Healing right rib and glenoid fracture deformities. 5. Unchanged mediastinal and hilar lymphadenopathy. ACT 112: Negative or not required by law. Electronically signed by: Mark Acosta M.D. 10/01/2023 2:22 PM
[2023-10-01] MEDS: DOXYCYCLINE HYCLATE 100 MG in DEXTROSE 5% MINI-B 100 ML IV SCH (15:57)
[2023-10-01] MEDS: CEFEPIME 2,000 MG in SYRINGE 0 ML IV SCH (15:57)
--- NOTE | 2023-10-01 16:17 | Billing Data ---
Date of Service October 01, 2023 Coding Level of Care Code 75606 SUB INP/OBS CARE MIN
[2023-10-01] MEDS: LIDOCAINE 5% 1 PATCH TD STA (18:05)
[2023-10-01] MEDS: ACETAMINOPHEN 1,000 MG/100 ML VIAL IV SCH (18:06)
[2023-10-01] MEDS: LACTATED RINGER'S 1,000 ML IV SCH (18:06)
[2023-10-01] MEDS: MoRPHine SULFATE 2 MG/ML CARP IV PRN (18:11)
[2023-10-01] MEDS: KETOROLAC TROMETHAMINE 15 MG/ML VIAL IV PRN (20:26)
[2023-10-02 06:54] LABS: BUN Creatinine Ratio 17.9 (10-20); C Reactive Protein 23.16 mg/dl (0-0.5); Calcium 8.3 mg/dl (8.6-10.3); Est GFR (African American) 35.1 ml/min; Est GFR (Non-African American) 30.3 ml/min; Potassium 4.6 mmol/L (3.5-5.1)
[2023-10-02 07:34] LABS: Hematocrit (blood only) 27.1 % (37.0-47.0); Hemoglobin 7.8 g/dl (12.0-16.0); Mean Corpuscular Hemoglobin 25.2 pg (25.0-34.0); Mean Corpuscular Hgb Conc 28.8 g/dL (32.0-36.0); Mean Corpuscular Volume 87.7 fL (80.0-100.0); Mean Platelet Volume 9.7 fL (9.4-12.4); Platelet Count 122 K/uL (130-400); RDW Coefficient of Variation 16.8 % (11.5-14.5); RDW Standard Deviation 53.7 fL (36.4-46.3); Red Blood Count 3.09 M/uL (4.20-5.40); White Blood Count 2.61 K/ul (4.8-10.8)
[2023-10-02 07:35] LABS: Eosinophils # (auto) 0.08 K/uL (0.00-0.50); Eosinophils % (auto) 3.1 %; Immature Granulocytes # (auto) 0.02 K/uL (0.01-0.20); Immature Granulocytes % (auto) 0.8 %; Lymphocytes # (auto) 0.41 K/uL (1.20-3.40); Lymphocytes % (auto) 15.7 %; Monocytes # (auto) 0.08 K/uL (0.11-0.59); Monocytes % (auto) 3.1 %; Neutrophils # (auto) 2.02 K/uL (1.40-6.50); Neutrophils % (auto) 77.3 %; Polychromasia 1+; Tear Drop Cells 1+
--- NOTE | 2023-10-02 07:54 | Pulmonology Progress Note ---
Date of Service October 02, 2023 Assessment & Plan (1) Shortness of breath: (2) Pleural effusion: (3) Infection due to human metapneumovirus (hMPV): Plan IMPRESSION: 53-year-old female with viral bronchiolitis and left-sided effusion status post pigtail catheter placement. Fluid is neutrophilic and exudative with negative cultures. Could be related to an infectious etiology but does not appear consistent with empyema. Other alternatives are also possible. RECOMMENDATIONS: 1. LEFT-sided pleural effusion - Neutrophilic exudate. Pleural fluid cultures from this hospitalization are negative to date. CT scan does show some reaccumulation of the fluid is slightly loculated. It is not amenable to repeat thoracentesis at this point in time and if additional drainage is required, consideration for IR consultation or referral for thoracic surgery would be appropriate. Given her hemodynamic stability, I think continuing to follow her with diuretics and incentive spirometry would be reasonable. 2. Hypoxemia -continue to encourage pulmonary toileting with incentive spirometry and flutter valve's. Encourage out of bed to chair is much as possible. Titrate down oxygen to goal saturation of 88 to 90%. 3. Human metapneumovirus infection - Supportive care recommended. Bronchodilators as needed 4. Hypercarbic respiratory failure - Prior blood gas demonstrate hypercarbia. The patient likely has obesity hypoventilation syndrome but it is unlikely that she is going to be compliant with noninvasive positive pressure ventilation or CPAP. Would not try and pursue oxygen saturations much above 88 to 90% given her concomitant hypercarbia. If the patient wished to pursue additional intervention, outpatient PFTs and polysomnography may be appropriate. 5. Possible pneumonia: The patient is pancytopenic at this point time of unclear etiology. Evaluation workup per primary admitting service. Her antibiotics have been broadened. Will defer additional antimicrobial therapy to the primary admitting service. Her procalcitonin has slightly up trended of unclear significance. Admission and Anticipated Discharge Date Admission Date: September 27, 2023 Subjective Asked by hospitalist team to reevaluate this patient with persistent hypoxemia fevers and persistently abnormal chest x-ray. History is difficult obtained from patient. She is complaining of some right- sided chest pain. Of note her pleural procedure previously was performed on the left. She did have a fever back on the but it is now resolved. She is pancytopenic. She is complaining of some slight increase shortness of breath. She is coughing but not really expectorating phlegm. She remains essentially bedbound. Review of Systems 2 Review of Systems: All systems reviewed & are unremarkable except as noted in Subjective Physical Exam 2 Constitutional: + morbidly obese; no acute distress Neck: trachea midline, no thyromegaly Respiratory: no respiratory distress, no labored breathing, no cough and not tachypneic Auscultation: + diminished lung sounds and + rhonchi Cardiovascular: RRR, no murmur, no edema Gastrointestinal (Abdomen): normal bowel sounds, soft, nontender, no hepatosplenomegaly Musculoskeletal: Extremities: extremities normal to inspection Skin: no rashes, warm and dry Lymphatic: no cervical lymphadenopathy Results & Data Results & Data Vital Signs (Past 12 Hours) Vital Signs Temp Pulse Pulse Resp BP Pulse Ox O2 Del Method 10/02/23 06:58 37.1 C 93 H 20 138/71 90 Nasal Cannula 10/02/23 04:07 80 21 92 Nasal Cannula 10/02/23 02:39 36.4 C L 72 16 97/58 L 95 Nasal Cannula 10/01/23 22:53 85 10/01/23 22:49 36.4 C L 81 20 101/62 94 Nasal Cannula O2 Flow Rate 10/02/23 06:58 6 10/02/23 04:07 5 10/02/23 02:39 10/01/23 22:53 10/01/23 22:49 Laboratory Results 10/02/23 05:51 10/02/23 05:[address] of the chest was independently reviewed. It demonstrates small loculated effusion on the left with small effusion on the right. The majority the densities identified on the chest x-ray correspond to atelectatic lung/pneumonia. PG Care Time/CCT Total # of Minutes Spent Total Time Spent with Patient: Total time spent is greater than 50% in coordination of care (as documented) at patient's floor/unit and/or counseling patient: Coding Level of Care Code 45302 SUB INP/OBS CARE 2/35MIN Diagnoses Shortness of breath R06.02 Pleural effusion J90 Infection due to human metapneumovirus (hMPV) B34.8
--- NOTE | 2023-10-02 08:16 | XRay Report ---
XR chest 1V portable HISTORY: 53 years-old Female sob acute shortness of breath COMPARISON: 10/01/2023 TECHNIQUE: AP view of the chest FINDINGS: Cardiac silhouette is enlarged. Pulmonary vascular congestion with interstitial coarsening. Left grea ter than right pleural effusions with bibasilar and left midlung consolidation again noted. Chronic r ib fractures. Right shoulder arthroplasty. IMPRESSION: 1. Cardiomegaly with unchanged pulmonary edema. 2. Stable pleural effusions with bibasilar and left midlung consolidation. ACT 112: Negative or not required by law. The above report was generated using voice recognition software. It may contain grammatical, syntax o r spelling errors. Electronically signed by: Mark Acosta M.D. 10/02/2023 8:15 AM
[2023-10-02] MEDS: FUROSEMIDE 40 MG/4 ML VIAL IV ONE (08:21)
[2023-10-02 08:24] LABS: iSTAT Arterial Blood Gas HCO3 28 meg/L (19-24); iSTAT Arterial Blood Gas pCO2 60 mmHg (35-46); iSTAT Arterial Blood Gas pH 7.27 (7.35-7.45); iSTAT Arterial Blood Gas pO2 59 mmHg (80-95); iSTAT Carbon Dioxide 29 mmol/L (24-31); iSTAT Hematocrit 27 % (37-47); iSTAT Hemoglobin 9.2 g/dl (12.0-16.0); iSTAT Potassium 4.9 mmol/L (3.3-5.0); iSTAT Sodium 134 mmol/L (135-144)
[2023-10-02] MEDS: methylPREDNISolone 40 MG in SYRINGE 0 ML IV ONE (08:26)
--- NOTE | 2023-10-02 09:18 | Hospitalist Progress Note ---
Date of Service October 02, 2023 Assessment & Plan (1) Infection due to human metapneumovirus (hMPV): (2) Depression: (3) Depression with suicidal ideation: (4) Pleural effusion: (5) Bipolar disorder: (6) CKD (chronic kidney disease) stage 4, GFR 15-29 ml/min: (7) Diabetes mellitus, type 2: (8) GERD (gastroesophageal reflux disease): (9) Acute hypercapnic respiratory failure: Plan Pt is a 53 yo female with a past medical history of depression with suicidal ideation, bipolar disorder, CKD stage 4 secondary to DMT2 on insulin, pituitary tumor s/p resection 1995, hypothyroidism, hx CVA, GERD, chronic back pain, JOE/OHS not on bipap or CPAP at night, and chronic 2L O2 use who presents to the hospital from care home on 09/[facility] for respiratory distress. #Acute hypercapnic resp failure #Large L pleural effusion - CXR and chest CT note large L pleural effusion on arrival - CHF vs pneumonia vs other underlying etiology bnp 167 on admission, echo 09/26; EF 60-65%, no wall abnormality noted but study limited CT findings suggesting pneumonia, pulmonary edema, and increasing right- sided pleural effusion (detailed in section below) -Worsening shortness of breath/respiratory symptoms this morning for which a code purple was called Respiration and oxygenation improved with BiPAP Single dose of steroids also given due to wheezing perceived on exam CXR done at the time showing pulmonary edema; gentle IVF started yesterday stopped ABG at the time with both pO2 and pCO2 of ~60, and pH of 7.27 Repeat ABG 1 hour later with improved pO2 to 66, pCO2 now at 46, and pH now of 7.35 Given this improvement, will consider transitioning oxygen delivery method to high-flow NC If SOB worsens again, consider repeat imaging versus more diuresis - pulm consulted - chest tube placed 09/26, removed 09/28 Re-evaluated patient today given worsening effusions and respiratory symptoms > CT showing increase in fluid that seems loculated, so no indication for thoracentesis. Consider IR consult if additional drainage is needed. > Continue incentive spirometry, flutter valve, and diuretics >Hypercarbia likely from OHS. O2 sat goal of 88-90%. Recc outpatient PFTs and polysomnography. #Pneumonia (multifocal) / Fever -Fever has not recurred since 09/30/23 -UA with culture done 09/22; grew proteus; repeat urine culture negative for now -Blood cx 09/26 negative; repeat blood cultures also negative for now -Given episodes of fevers, CRP and Pro-Juan repeated CRP elevated from 13.95-22.7-23.16 Pro-Juan remains normal at 0.38 -Chest CT ordered yesterday due to worsening SOB and CXR showing what appeared to be worsening effusions CT showed: (1.) Cardiomegaly with pulmonary edema, and unchanged pericardial effusion. Increased size of a small right pleural effusion with decreased size of a moderate left pleural effusion. (2.) Multifocal pneumonia has progressively worsened from prior. (3.) Left lung volume loss with dependent predominant bibasilar consolidation and air bronchograms. There is improved aeration of the left lung compared to the 09/27/2023 exam. (4.) Healing right rib and glenoid fracture deformities. (5.) Unchanged mediastinal and hilar lymphadenopathy. 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 - Advise outpatient follow-up with medical billing instructor #CKD stage 4 - last nephro note in our system was 11/2020 - baseline Cr around 1.5 or so -Today creatinine of 1.84 -Continue to encourage p.o. hydration monitoring a.m. labs #DMT2 on insulin - will hold home trulicity - insulin glarg held due to hypoglycemia or euglycemic values the last 24 hours - novolog CF 25, carb ratio 15 per protocol #Hypothyroidism - most recent TSH 09/2023 was 2.3 - continue home levothyroxine #GERD - continue home pantoprazole and famotidine #Depression #Bipolar disorder - continue home aripiprazole - continue home Thorazine - continue home bupropion - continue home paroxetine - note that Thorazine may interact with Abilify and bupropion and cause QT prolongation but could have withdrawal symptoms if stopped so will continue for now #CAD - continue home rosuvastatin #Chronic back pain #Diabetic neuropathy - continue home gabapentin DVT ppx: Lovenox qam started 09/27 Admission and Anticipated Discharge Date Admission Date: September 27, 2023 Subjective Pt is a 53 yo female with a past medical history of depression with suicidal ideation, bipolar disorder, CKD stage 4 secondary to DMT2 on insulin, pituitary tumor s/p resection 1995, hypothyroidism, hx CVA, GERD, chronic back pain, JOE/OHS not on bipap or CPAP at night, and chronic 2L O2 use who presents to the hospital from care home on 09/26 for respiratory distress. Patient seen today at bedside and she is still feeling SOB. A code simone was called to due hypoxic episode while being seen by her nurse, and she was then placed on BiPAP with improvement in oxygen saturation. On re-evaluation 30-40 minutes later, patient states she feels slightly better with regards to her SOB when compared to earlier this morning but is still not feeling well. Further history difficult to obtain. Review of Systems Review of Systems: Per HPI. Physical Exam Physical Exam: General: Alert and awake, afebrile Cardio: Regular rate and rhythm, no murmur Resp: Overall poor air movement appreciated with crackles in bilateral lung bases and extending to mid-lung ahuja, increased respiratory effort, respiratory distress GI: diffuse abdominal tenderness, some distention, hypoactive bowel sounds MSK: 1+ pitting edema of B/L lower extremities Skin: Warm, pink, dry Psych: Mood-affect congruence. Results & Data Results & Data Vital Signs (Past 12 Hours) Vital Signs Temp Pulse Pulse Resp BP Pulse Ox O2 Del Method 10/02/23 08:05 108 H 35 H 92 10/02/23 07:46 101 H 28 H 90 Oxymask 10/02/23 06:58 37.1 C 93 H 20 138/71 90 Nasal Cannula 10/02/23 04:07 80 21 92 Nasal Cannula 10/02/23 02:39 36.4 C L 72 16 97/58 L 95 Nasal Cannula 10/01/23 22:53 85 10/01/23 22:49 36.4 C L 81 20 101/62 94 Nasal Cannula O2 Flow Rate FiO2 10/02/23 08:05 50 10/02/23 07:46 15 10/02/23 06:58 6 10/02/23 04:07 5 10/02/23 02:39 10/01/23 22:53 10/01/23 22:49 Resident Activity Tracking Resident Involvement: Resident Care Provided Care Provided: Adult Hospital Medicine
[2023-10-02 10:02] LABS: iSTAT Arterial Blood Gas HCO3 26 meg/L (19-24); iSTAT Arterial Blood Gas pCO2 46 mmHg (35-46); iSTAT Arterial Blood Gas pH 7.35 (7.35-7.45); iSTAT Arterial Blood Gas pO2 66 mmHg (80-95); iSTAT Carbon Dioxide 27 mmol/L (24-31); iSTAT Hematocrit 22 % (37-47); iSTAT Hemoglobin 7.5 g/dl (12.0-16.0); iSTAT Potassium 4.9 mmol/L (3.3-5.0); iSTAT Sodium 133 mmol/L (135-144)
[2023-10-02] MEDS: LIDOCAINE 5% 1 PATCH TD SCH (12:08)
--- NOTE | 2023-10-02 17:52 | Billing Data ---
Date of Service October 02, 2023 Coding Level of Care Code 89876 SUB INP/OBS CARE MIN
[2023-10-03 07:19] LABS: Hematocrit (blood only) 26.4 % (37.0-47.0); Hemoglobin 7.9 g/dl (12.0-16.0); Mean Corpuscular Hemoglobin 25.5 pg (25.0-34.0); Mean Corpuscular Hgb Conc 29.9 g/dL (32.0-36.0); Mean Corpuscular Volume 85.2 fL (80.0-100.0); Mean Platelet Volume 9.6 fL (9.4-12.4); Platelet Count 140 K/uL (130-400); RDW Coefficient of Variation 16.2 % (11.5-14.5); White Blood Count 4.12 K/ul (4.8-10.8)
[2023-10-03 07:35] LABS: BUN Creatinine Ratio 22.6 (10-20); Calcium 8.7 mg/dl (8.6-10.3); Creatinine Clr Calc Pharmacy 43.7 ml/min; Est GFR (African American) 43.2 ml/min; Est GFR (Non-African American) 37.3 ml/min; Potassium 5.1 mmol/L (3.5-5.1)
[2023-10-03 08:14] LABS: Immature Granulocytes # (auto) 0.06 K/uL (0.01-0.20); Immature Granulocytes % (auto) 1.5 %; Lymphocytes # (auto) 0.41 K/uL (1.20-3.40); Monocytes # (auto) 0.14 K/uL (0.11-0.59); Monocytes % (auto) 3.4 %; Neutrophils # (auto) 3.51 K/uL (1.40-6.50); Neutrophils % (auto) 85.1 %; Ovalocytes 1+; Polychromasia 1+; Tear Drop Cells 1+
--- NOTE | 2023-10-03 09:39 | Hospitalist Progress Note ---
Date of Service October 03, 2023 Assessment & Plan (1) Infection due to human metapneumovirus (hMPV): (2) Depression: (3) Depression with suicidal ideation: (4) Pleural effusion: (5) Bipolar disorder: (6) CKD (chronic kidney disease) stage 4, GFR 15-29 ml/min: (7) Diabetes mellitus, type 2: (8) GERD (gastroesophageal reflux disease): (9) Acute hypercapnic respiratory failure: Plan Pt is a 53 yo female with a past medical history of depression with suicidal ideation, bipolar disorder, CKD stage 4 secondary to DMT2 on insulin, pituitary tumor s/p resection 1995, hypothyroidism, hx CVA, GERD, chronic back pain, JOE/OHS not on bipap or CPAP at night, and chronic 2L O2 use who [facility] for [facility] distress. #Acute hypercapnic resp failure #Large L pleural effusion (s/p chest tube from 09/26-09/28) - CXR and chest CT note large L pleural effusion on arrival - CHF vs pneumonia vs other underlying etiology bnp 167 on admission, echo 09/26; EF 60-65%, no wall abnormality noted but study limited CT findings suggesting pneumonia, pulmonary edema, and increasing right- sided pleural effusion -Respiratory status improved today on NC at 10 lpm O2 Sat is above therapeutic range (95-98%). Will adjust NC to get O2 sat at goal range of 88-92% - Will give additional dose of lasix 40mg IV today due to persistent crackles and reassess tomorrow #Pneumonia (multifocal) / Fever -Fever has not recurred since 09/30/23 -UA with culture done 09/22; grew proteus; repeat urine culture negative for now -Blood cx 09/26 negative; repeat blood cultures also negative for now -Given episodes of fevers, CRP and Pro-Juan repeated CRP elevated from 13.95-22.7-23.16 Pro-Juan remains normal at 0.38 - CT from 10/01/23 showed Cardiomegaly with pulmonary edema, Increased size of a small right pleural effusion with decreased size of a moderate left pleural effusion, Multifocal pneumonia has progressively worsened from prior. 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 - Advise outpatient follow-up with sole leather cutting machine operator #CKD stage 4 - last nephro note in our system was 11/2020 - baseline Cr around 1.5 or so -Today creatinine improved and around patient's baseline (1.55) -Continue monitoring a.m. labs #DMT2 on insulin - will hold home trulicity - insulin glarg held due to hypoglycemia or euglycemic values the last 24 hours - novolog CF 25, carb ratio 15 per protocol #Hypothyroidism - most recent TSH 09/2023 was 2.3 - continue home levothyroxine #GERD - continue home pantoprazole and famotidine #Depression #Bipolar disorder - continue home aripiprazole - continue home Thorazine - continue home bupropion - continue home paroxetine - note that Thorazine may interact with Abilify and bupropion and cause QT prolongation but could have withdrawal symptoms if stopped so will continue for now #CAD - continue home rosuvastatin #Chronic back pain #Diabetic neuropathy - continue home gabapentin DVT ppx: Lovenox qam started 09/27 Admission and Anticipated Discharge Date Admission Date: September 27, 2023 Supervising Physician Co-Signing Physician Notes Attending attestation Pt seen and examined in concert with Dr. Macias. In agreement with the documented findings as noted in the resident documentation with any exceptions or additions as noted here. Symptoms of SOB controlled on current O2 level and medication. On examination, S1/S2 nl RRR no MCG. scattered coarse breath sounds. Abd NT/ND BS+ve. 2+ pitting edema of the b/l LE Acute hypercapnic respiratory failure in the setting of multifocal PNA and left pleural effusion/fluid overload - pulm consult - repeat IV furosemide and monitor Cr daily. BCx NGTD. Doxycycline, cefepime (day 2) transition to PO with clinical improvement. CKD IV - Cr at baseline, will monitor with diuresis. IDDMII - iSS and monitor Else see resident documentation as noted. Subjective Pt is a 53 yo female with a past medical history of depression with suicidal ideation, bipolar disorder, CKD stage 4 secondary to DMT2 on insulin, pituitary tumor s/p resection 1995, hypothyroidism, hx CVA, GERD, chronic back pain, JOE/OHS not on bipap or CPAP at night, and chronic 2L O2 use who [facility] for [facility] distress. Patient seen today at bedside and she is still feeling SOB similar to what she felt yesterday afternoon, but improved compared to yesterday morning. She was found to be awake and alert and in NAD. She refers she is feeling some back pain due to limited movement as a consequence of her respiratory status. Also states she has been feeling occasional chills. No other symptoms. Review of Systems Review of Systems: Per HPI. Physical Exam Physical Exam: General: Alert and awake, afebrile Cardio: Regular rate and rhythm, no murmur Resp: Overall poor air movement appreciated with diffuse course rhonchi, some wheezing, no respiratory distress GI: diffuse abdominal tenderness, some distention, hypoactive bowel sounds MSK: 1+ pitting edema of B/L lower extremities Skin: Warm, pink, dry Psych: Mood-affect congruence. Results & Data Results & Data Vital Signs (Past 12 Hours) Vital Signs Temp Pulse Pulse Resp BP Pulse Ox O2 Del Method 10/03/23 07:26 84 22 98 Nasal Cannula 10/03/23 06:59 36.7 C 83 20 145/73 H 94 High Flow Nasal Cannula 10/03/23 02:50 37.0 C 85 20 128/75 93 High Flow Nasal Cannula 10/03/23 02:20 79 22 94 High Flow Nasal Cannula 10/02/23 22:24 36.7 C 78 20 128/81 93 High Flow Nasal Cannula 10/02/23 22:12 75 24 94 High Flow Nasal Cannula 10/02/23 22:01 75 10/02/23 21:50 High Flow Nasal Cannula O2 Flow Rate FiO2 10/03/23 07:26 10 10/03/23 06:59 30 10/03/23 02:50 10/03/23 02:20 30 50 10/02/23 22:24 10/02/23 22:12 30 50 10/02/23 22:01 10/02/23 21:50 30 50 Resident Activity Tracking Resident Involvement: Resident Care Provided Care Provided: Adult Hospital Medicine
[2023-10-03] MEDS: FUROSEMIDE 40 MG/4 ML VIAL IV ONE (11:02)
[2023-10-04 07:12] LABS: Hematocrit (blood only) 27.3 % (37.0-47.0); Hemoglobin 7.9 g/dl (12.0-16.0); Mean Corpuscular Hgb Conc 28.9 g/dL (32.0-36.0); Mean Corpuscular Volume 86.4 fL (80.0-100.0); Mean Platelet Volume 9.7 fL (9.4-12.4); Platelet Count 176 K/uL (130-400); RDW Coefficient of Variation 16.2 % (11.5-14.5); RDW Standard Deviation 51.6 fL (36.4-46.3); Red Blood Count 3.16 M/uL (4.20-5.40); White Blood Count 4.01 K/ul (4.8-10.8)
[2023-10-04 07:28] LABS: BUN Creatinine Ratio 20.3 (10-20); Creatinine Clr Calc Pharmacy 46.3 ml/min; Est GFR (African American) 47.7 ml/min; Est GFR (Non-African American) 41.1 ml/min; Potassium 4.4 mmol/L (3.5-5.1)
[2023-10-04 07:55] LABS: Basophils # (auto) 0.01 K/uL (0.00-0.20); Basophils % (auto) 0.2 %; Eosinophils # (auto) 0.08 K/uL (0.00-0.50); Immature Granulocytes # (auto) 0.25 K/uL (0.01-0.20); Immature Granulocytes % (auto) 6.2 %; Lymphocytes # (auto) 0.68 K/uL (1.20-3.40); Monocytes # (auto) 0.18 K/uL (0.11-0.59); Monocytes % (auto) 4.5 %; Neutrophils # (auto) 2.81 K/uL (1.40-6.50); Neutrophils % (auto) 70.1 %; Tear Drop Cells 1+
--- NOTE | 2023-10-04 10:30 | Hospitalist Progress Note ---
Date of Service October 04, 2023 Assessment & Plan (1) Infection due to human metapneumovirus (hMPV): (2) Depression: (3) Depression with suicidal ideation: (4) Pleural effusion: (5) Bipolar disorder: (6) CKD (chronic kidney disease) stage 4, GFR 15-29 ml/min: (7) Diabetes mellitus, type 2: (8) GERD (gastroesophageal reflux disease): (9) Acute hypercapnic respiratory failure: Plan Pt is a 53 yo female with a past medical history of depression with suicidal ideation, bipolar disorder, CKD stage 4 secondary to DMT2 on insulin, pituitary tumor s/p resection 1995, hypothyroidism, hx CVA, GERD, chronic back pain, JOE/OHS not on bipap or CPAP at night, and chronic 2L O2 use who [facility] for respiratory distress. #Acute hypercapnic resp failure #Large L pleural effusion (s/p chest tube from 09/26-09/28) - CXR and chest CT note large L pleural effusion on arrival - CHF vs pneumonia vs other underlying etiology bnp 167 on admission, echo 09/26; EF 60-65%, no wall abnormality noted but study limited CT findings suggesting pneumonia, pulmonary edema, and increasing right- sided pleural effusion -Respiratory status improved and NC currently at 2 lpm which is her home O2 requirement -Will continue antibiotics for pneumonia management as detailed below and reassess tomorrow. #Pneumonia (multifocal) / Fever -Fever has not recurred since 09/30/23 -UA with culture done 09/22; grew proteus; repeat urine culture negative for now -Blood cx negative - CT from 10/01/23 showed Cardiomegaly with pulmonary edema, Increased size of a small right pleural effusion with decreased size of a moderate left pleural effusion, Multifocal pneumonia has progressively worsened from prior. - Given clinical improvement, will switch IV abx to PO abx (Cefdinir/Doxycycline), which she can continue after discharge to complete 7 days. 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 - Advise outpatient follow-up with wood[employer] reeds cutter #CKD stage 4 - last nephro note in our system was 11/2020 - baseline Cr around 1.5 or so -Today creatinine improved at 1.43 -Continue monitoring a.m. labs #DMT2 on insulin - will hold home trulicity - insulin glarg held due to hypoglycemia or euglycemic values the last 24 hours - novolog CF 25, carb ratio 15 per protocol #Hypothyroidism - most recent TSH 09/2023 was 2.3 - continue home levothyroxine #GERD - continue home pantoprazole and famotidine #Depression #Bipolar disorder - continue home aripiprazole - continue home Thorazine - continue home bupropion - continue home paroxetine - note that Thorazine may interact with Abilify and bupropion and cause QT prolongation but could have withdrawal symptoms if stopped so will continue for now #CAD - continue home rosuvastatin #Chronic back pain #Diabetic neuropathy - continue home gabapentin DVT ppx: Lovenox qam started 09/27 Admission and Anticipated Discharge Date Admission Date: September 27, 2023 Supervising Physician Co-Signing Physician Notes Attending attestation Pt seen and examined in concert with Dr. Macias. In agreement with the documented findings as noted in the resident documentation with any exceptions or additions as noted here. Improving SOB controlled on current O2 level and medication. On examination, S1/S2 nl RRR no MCG. scattered coarse breath sounds. Abd NT/ND BS+ve. 2+ pitting edema of the b/l LE Acute hypercapnic respiratory failure in the setting of multifocal PNA and left pleural effusion/fluid overload - pulm consult - BCx NGTD. Doxycycline, cefepime (day 2) transition to PO as continued reduction in O2. CKD IV - Cr at baseline, will monitor with diuresis. IDDMII - iSS and monitor Else see resident documentation as noted. Subjective Pt is a 53 yo female with a past medical history of depression with suicidal ideation, bipolar disorder, CKD stage 4 secondary to DMT2 on insulin, pituitary tumor s/p resection 1995, hypothyroidism, hx CVA, GERD, chronic back pain, JOE/OHS not on bipap or CPAP at night, and chronic 2L O2 use who presents to the hospital from [facility] for respiratory distress. Patient seen today at bedside and states she has some SOB that is improved compared to yesterday. Has been using the IS and flutter valve but not very consistently. Has some back pain as well. Denies fevers, chills, or any other symptom. No other concerns. Review of Systems Review of Systems: Per HPI. Physical Exam Physical Exam: General: Alert and awake, afebrile, NAD Cardio: Regular rate and rhythm, no murmur Resp: Persistent wheezing and crackles but improved compared to prior exams, no respiratory distress GI: some distention, hypoactive bowel sounds MSK: 1+ pitting edema of B/L lower extremities Skin: Warm, pink, dry Psych: Mood-affect congruence. Results & Data Results & Data Vital Signs (Past 12 Hours) Vital Signs Temp Pulse Pulse Resp BP Pulse Ox O2 Del Method 10/04/23 10:15 Nasal Cannula 10/04/23 07:24 78 20 94 Nasal Cannula 10/04/23 07:18 36.7 C 80 20 107/63 95 High Flow Nasal Cannula 10/04/23 06:25 16 96 Nasal Cannula 10/04/23 03:51 36.7 C 75 16 102/61 99 Nasal Cannula 10/03/23 23:33 36.5 C 77 18 104/65 99 Nasal Cannula 10/03/23 23:00 77 O2 Flow Rate 10/04/23 10:15 3 10/04/23 07:24 4 10/04/23 07:18 4 10/04/23 06:25 6 10/04/23 03:51 6.0 10/03/23 23:33 6.0 10/03/23 23:00
[2023-10-04] MEDS: CEFDINIR 300 MG CAP PO SCH (21:49)
[2023-10-04] MEDS: DOXYCYCLINE HYCLATE 100 MG CAP PO SCH (21:49)
[2023-10-05 07:51] LABS: Hematocrit (blood only) 29.7 % (37.0-47.0); Hemoglobin 8.5 g/dl (12.0-16.0); Mean Corpuscular Hemoglobin 25.4 pg (25.0-34.0); Mean Corpuscular Hgb Conc 28.6 g/dL (32.0-36.0); Mean Corpuscular Volume 88.7 fL (80.0-100.0); Mean Platelet Volume 9.2 fL (9.4-12.4); Platelet Count 204 K/uL (130-400); RDW Coefficient of Variation 16.6 % (11.5-14.5); RDW Standard Deviation 54.4 fL (36.4-46.3); Red Blood Count 3.35 M/uL (4.20-5.40); White Blood Count 5.72 K/ul (4.8-10.8)
[2023-10-05 08:04] LABS: BUN Creatinine Ratio 17.7 (10-20); Creatinine Clr Calc Pharmacy 50.2 ml/min; Est GFR (African American) 53.5 ml/min; Est GFR (Non-African American) 46.1 ml/min; Potassium 4.9 mmol/L (3.5-5.1)
[2023-10-05 09:12] LABS: ALC (manual) 1.32 K/uL (1.2-3.4); ANC (manual) 3.66 K/uL (1.4-6.5); Eosinophils # (manual) 0.17 K/uL (0-0.50); Eosinophils % (manual) 3 %; Lymphocytes # (manual) 1.32 K/uL (1.2-3.4); Lymphocytes % (manual) 23 %; Metamyelocytes # (manual) 0.17 K/uL (0-0); Metamyelocytes % (manual) 3 %; Monocytes # (manual) 0.06 K/uL (0.11-0.59); Monocytes % (manual) 1 %; Myelocytes # (manual) 0.34 K/uL (0-0); Myelocytes % (manual) 6 %; Neutrophils # (manual) 3.66 K/uL (1.40-6.50); Neutrophils % (manual) 64 %; RBC Morphology Unremarkable
[2023-10-05] MEDS: CEFDINIR 300 MG CAP PO SCH (10:01)
--- NOTE | 2023-10-05 12:01 | Discharge Summary ---
Date of Service October 05, 2023 Admission HPI Per Admitting Provider Pt is a 53 yo female with a past medical history of depression with suicidal ideation, bipolar disorder, CKD stage 4 secondary to DMT2 on insulin, pituitary tumor s/p resection 1995, hypothyroidism, hx CVA, GERD, chronic back pain, JOE/OHS not on bipap or CPAP at night, and chronic 2L O2 use who presents to the hospital from half-way on 09/26 for respiratory distress. Pt states that for the past 2 weeks she has had symptoms of cough, congestion, and shortness of breath that has progressively worsened. She states her legs have also been swollen but this is a chronic problem, but has been a bit worse the past 2 weeks with some associated soreness but no rashes or lesions anywhere that she knows about. Also notes some dysuria. States she cannot get herself up to go to the bathroom so she goes on the pads and then has them changed. She is not ambulatory according to her. She also states she is typically on 2L oxygen 24 hours a day and has been for years, no cpap or bipap device at nighttime according to her. Overall states that today she is feeling unwell and having significant shortness of breath. Also has a headache and nausea this morning with occasional dry heaves. Admission Exam Per Admitting Provider General: Alert and awake but fatigued appearing HEENT: Normocephalic, moist oral mucosa, Cardio: Regular rate and rhythm, no murmur, Resp: Vastly diminished breath sounds on the L side throughout, with subpar air movement on the R, increased resp effort noted GI: Soft but tender diffusely, bowel sounds active MSK: 2+ pitting edema of B/L lower extremities Skin: Warm, pink, dry, no rashes or ulcers noted on visible skin Psych: Mood-affect congruence. Principal Diagnosis Pneumonia Discharge Exam General: Alert and awake, afebrile, NAD Cardio: Regular rate and rhythm, no murmur Resp: Slight wheezing and crackles but improved compared to prior exams, no respiratory distress GI: some distention, hypoactive bowel sounds MSK: 1+ pitting edema of B/L lower extremities Skin: Warm, pink, dry Psych: Mood-affect congruence. Discharge Data Allergies Allergy/AdvReac Type Severity Reaction Status Date / Time metformin Allergy Unknown Unknown Verified 08/19/21 10:39 reaction (per [facility] records) phenytoin [From Dilantin] Allergy Unknown Unknown Verified 08/19/21 10:39 reaction (per [facility] records) acetaminophen AdvReac Intermediate Nausea Verified 08/19/21 10:39 hydromorphone AdvReac Intermediate Bradycardia Verified 08/19/21 10:39 tramadol AdvReac Unknown N/V Verified 08/19/21 10:39 Consultations 09/27/23 08:06 ED Decision to Admit Stat 09/27/23 08:43 ED Decision to Admit Stat 09/27/23 09:03 Consult Pulmonology Routine Ordered Studies 09/27/23 07:44 CT chest diagnostic wo con Stat 09/28/23 17:05 CT Abd and Pelvis [CT abd pelvis oral and IV con] Routine 10/01/23 12:47 CT chest diagnostic wo con Stat Hospital Course (1) Infection due to human metapneumovirus (hMPV): (2) Depression: (3) Depression with suicidal ideation: (4) Pleural effusion: (5) Bipolar disorder: (6) CKD (chronic kidney disease) stage 4, GFR 15-29 ml/min: (7) Diabetes mellitus, type 2: (8) GERD (gastroesophageal reflux disease): (9) Acute hypercapnic respiratory failure: Plan Pt is a 53 yo female with a past medical history of depression with suicidal ideation, bipolar disorder, CKD stage 4 secondary to DMT2 on insulin, pituitary tumor s/p resection 1995, hypothyroidism, hx CVA, GERD, chronic back pain, JOE/OHS not on bipap or CPAP at night, and chronic 2L O2 use who presents to the hospital from half-way on 09/26 for respiratory distress. #Acute hypercapnic resp failure (Resolved) #Large L pleural effusion (s/p chest tube from 09/26-09/28) - CXR and chest CT note large L pleural effusion on arrival - CHF vs pneumonia vs other underlying etiology bnp 167 on admission, echo 09/26; EF 60-65%, no wall abnormality noted but study limited CT findings at the time suggesting pneumonia, pulmonary edema, and increasing right-sided pleural effusion -Respiratory status improved and is back to baseline with NC currently at 2 lpm which is her home O2 requirement -Antibiotics changed to PO Cefdinir/Doxycycline bid and patient has tolerated -Will discharge on PO antibiotics #Pneumonia (multifocal) / Fever (Acute, stable) -Fever has not recurred since 09/30/23 -Repeat U/Cx negative -Blood Cx negative - CT from 10/01/23 showed multifocal pneumonia which was likely the source of patient's fever - Will discharge on PO antibiotics as detailed above. #Metapneumovirus (Acute, stable) - biofire positive for metapneumovirus - If symptoms persists after discharge, may continue supportive care #Intertrigo (Acute, stable) - can use nystatin for skin irritation prn #Vaginal bleeding, postmenopausal (Acute, stable) - last [facility] appt August 2021 with concern of malignancy - CT scan done 09/27 with radiology noting absent uterus? - Advise outpatient follow-up with [facility] #CKD stage 4 (Chronic, stable) - last nephro note in our system was 11/2020 - baseline Cr around 1.5 or so -Today creatinine improved at 1.30 #DMT2 on insulin (Chronic, stable) - Hgb A1c from 06/2023 was 7.5% - Continue home regimen - May consider adjustment of insulin regimen for better glycemic control, but be aware of episodes of hypoglycemia while admitted. # Hypothyroidism (Chronic , stable) - most recent TSH 09/2023 was 2.3 - continue home levothyroxine #GERD (Chronic, stable) - continue home pantoprazole and famotidine #Depression (Chronic, stable) #Bipolar disorder (Chronic, stable) - continue home aripiprazole - continue home Thorazine - continue home bupropion - continue home paroxetine - note that Thorazine may interact with Abilify and bupropion and cause QT prolongation but could have withdrawal symptoms if stopped so will continue for now #CAD (Chronic, stable) - continue home rosuvastatin #Chronic back pain (Chronic, stable) #Diabetic neuropathy (Chronic, stable) - continue home gabapentin Patient found stable for discharge back to [facility] today. Total Time Total Time Spent Total Time Spent (In Minutes): As per attending attestation. Discharge Plan Discharge Items Patient Disposition: Transfer [facility] Reason For Visit: RESPIRATORY DISTRESS Discharge Diagnosis: Multifocal Pneumonia Activity: Per Instructions section Non-emergency contact: Primary Care Provider Call non-emergency contact if: your symptoms worsen and your temperature is above 101 Follow-up/Referrals: [facility] [Primary Care Provider] - Diet: Carb Consistent or DM2 and Heart Healthy Addtl Attending Provider Instructions: You were admitted to the hospital due to progressive shortness of breath that was found to be related to fluid in your lungs. After further studies once the fluid in your lungs was improved, you were found to have pneumonia. You were treated with intravenous antibiotics which helped you improve in terms of your breathing. Today you were back to your baseline and are using oxygen at the same level you use at home. For this reason, we find you stable to be discharged back to [facility] today. You will be completing 6 more days of antibiotics to complete 10 days of therapy for your pneumonia. Please take Cefdinir 300 mg by mouth two times a day for 6 days, and Doxycycline 100 mg by mouth two times a day. You may also use Immodium to help with your loose bowel movements. For your pain, you can use Tylenol (Acetaminophen). Please, also remember to use your flutter valve and incentive spirometry to help your lungs open a little more. A discharge summary will be sent to your primary care physician to ensure continuity of care. Please bring this discharge summary with you to your next office appointment so that your provider can review it at that time. Follow-up appointments: Make a follow-up appointment with your PCP within the next week. It is very important that you follow up with them shortly after discharge from the hospital. Keep all your follow-up appointments as already scheduled. If you cannot make an appointment, notify your provider. Medications: Your medication list has been reviewed and reconciled upon discharge to ensure accuracy and continuity of care. An updated list of all your medications is included with your hospital discharge paperwork. Please review this list closely, and make note of any changes. If you have any issues filling these prescriptions, please call [phone] and ask to leave a message for Dr. Macias. Take your medications as instructed; do not skip a dose of your medicines. Make sure all of your doctors know every medicine you are taking (including [id number] medicines, vitamins, and supplements). Call your primary care provider before taking any new medicines (including over- the-counter medicines, vitamins, and supplements), because some of these may interact with your current medications, or may make your symptoms worse. Tell your primary care provider if you cannot afford your medications. CONTACT YOUR PRIMARY CARE PROVIDER if you experience any of the following: Worsening of symptoms Fever, chills, or fatigue Difficulty following your treatment plan, or difficulty taking medications CALL 911 OR GO TO THE EMERGENCY DEPARTMENT if you experience any of the following: Sudden, severe abdominal pain or nausea/vomiting Severe chest pain, or chest pain that radiates (moves) to your jaw or arm Sudden, severe shortness of breath or difficulty breathing Thank you for allowing us to participate in your care. Pending Studies at Discharge: No Stand-Alone Forms: My [facility] Skilled Items Patient informed of condition?: Yes DNR: No Discharge Level of Care: Skilled Communicable Disease: Yes Discharge Prognosis: Stable Lines: None Urinary Catheter: No Medications and DC Order Prescriptions: New doxycycline hyclate 100 mg Capsule 100 mg PO BID 6 Days Qty: 12 0RF cefdinir 300 mg Capsule 300 mg PO BID 6 Days Qty: 12 0RF Continued fenofibrate nanocrystallized 48 mg tablet 48 mg PO QAM famotidine 20 mg tablet 20 mg PO BID ferrous sulfate 325 mg (65 mg iron) tablet 325 mg PO DAILY melatonin 3 mg capsule 3 mg PO HS PRN (Reason: Insomnia) pantoprazole 20 mg tablet,delayed release (DR/EC) 20 mg PO DAILY magnesium hydroxide [Milk of Magnesia] 400 mg/5 mL Suspension 2,400 mg PO DAILY PRN (Reason: Constipation) Rx Instructions: If no BM for 3 days administer on 12-20 shift levothyroxine 50 mcg Tablet 50 mcg PO DAILY bisacodyl [Dulcolax (bisacodyl)] 10 mg Suppository 10 mg MT DAILY PRN (Reason: Constipation) Rx Instructions: If no BM after MOM, give on day 3 on the 3-11 shift Fleet Enema 19-7 gram/118 mL Enema 118 ml MT DAILY PRN (Reason: Constipation) Rx Instructions: If no BM after Dulcolax, giev on day 4 on 73 shift oxycodone 5 mg Tablet 5 mg PO Q6H PRN (Reason: Pain) cholecalciferol (vitamin D3) [Vitamin D3] 2,000 unit Tablet 2,000 unit PO QAM rosuvastatin [Crestor] 20 mg Tablet 20 mg PO HS paroxetine HCl [Paxil] 30 mg Tablet 30 mg PO QAM carboxymethylcellulose sodium [Refresh Plus] 0.5 % Dropperette 2 drp OPHTHALMIC (EYE) Q8 PRN (Reason: Dry Eye(S)) acetaminophen 325 mg tablet 650 mg PO Q6H MDD 3g/24hr PRN (Reason: pain/Fever) ipratropium-albuterol 0.5 mg-3 mg(2.5 mg base)/3 mL Solution For Nebulization 3 ml INHALATION Q2H PRN (Reason: Shortness Of Breath Or Wheezing) loperamide 2 mg Capsule 2 mg PO Q2H MDD 6 DOSES PER DAY PRN (Reason: Diarrhea) insulin aspart U-100 100 unit/mL solution 10 unit subcut TIDWMEAL Rx Instructions: Hold for BSG<100 insulin aspart U-100 100 unit/mL solution 1 sliding scale dose subcut UD Rx Instructions: 351-400 = 8UNITS; 401-450 = 12UNITS; 451-500 = 16UNITS; 501+ = 18UNITS and recheck BSG in 2 hours. This is before meals and at bedtime aripiprazole 5 mg tablet 5 mg PO BID gabapentin 400 mg Tablet 400 mg PO TID Levemir U-100 Insulin 100 unit/mL solution 38 unit SUBCUT HS Combivent Respimat 20-100 mcg/actuation Mist 1 puff INHALATION Q6H PRN (Reason: Wheezing or Shortness of breath) Trulicity 1.5 mg/0.5 mL pen injector 1.5 mg SUBCUT WK Rx Instructions: Mondays glucagon HCl [Glucagon (HCl) Emergency Kit] 1 mg Recon Soln 1 mg IM UD PRN (Reason: Low BSG) Discontinued amoxicillin-pot clavulanate 500-125 mg tablet 1 tab PO BID Rx Instructions: Start Date 09/25/23 - End Date 10/02/23 Discharge Orders: Discharge Order (Routine); Ordered 10/05/23 Ordered By: Shandra Macias Admission Data Admit Date/Time: 09/27/23 08:54 Attending Provider: Christiano Spencer Admit Provider: Traci Hedrick Primary Care Provider: [facility] [place] Other Providers: Omar Guillen; Jb Ospina; [facility] Other Interventions: Discharge Summary Assessment (RN) Last Done: 10/05/23 13:00 Supervising Physician Co-Signing Physician Notes Attending attestation Pt seen and examined in concert with Dr. Macias. In agreement with the documented findings as noted in the resident documentation with any exceptions or additions as noted here. Breathing returned to baseline on chronic O2 requirement with intermittent coughing spells. Now more adherent to incentive spirometry. On examination, S1/S2 nl RRR no MCG. scattered coarse breath sounds. Abd NT/ND BS+ve. 1+ pitting edema of the b/l LE Acute hypercapnic respiratory failure in the setting of multifocal PNA and left pleural effusion/fluid overload - pulm consult - BCx NGTD - Complete course of PO abx as noted on baseline O2 rquirement. CKD IV - Cr at baseline, will monitor with diuresis. IDDMII - return to outpatient glycemic control regimen. Else see resident documentation as noted. Total attending physician time spent with this patient's care on the day of discharge: 35 minutes. Resident Activity Tracking Resident Involvement: Resident Care Provided Care Provided: Adult Hospital Medicine
== END 2023-10-05 14:28 | DRG 193 ==
LOC: ED 03:17 → 1E 08:54 → SUATTDRO 08:54 → 1E 11:28 → 2S 09-28 05:47